=== PATIENT | female | born 1975 | race African-American/Black ===

== ENCOUNTER 2016-11-26 20:23 | Emergency (ER) | payer OTHER ==
[~2016-11-26] VITALS: Ht 165.1 cm; Wt 77.6 kg
--- NOTE | 2016-11-26 20:32 | NUR ---
PT TO ER BED 12. C/O SUICIDAL IDEATION W/ PLAN TO OD ON ASPIRIN AND TYLENOL. NO MEDICAL COMPLAINS AT THIS TIME. STATES BEEN HAVING SI FOR DAYS NOW BUT GOT WORST SINCE THIS AM. PT IS AAO, SI PRECAUTION IMPLEMENTED. AWAITINGMD EVAL.
[2016-11-26 20:45] LABS: BASOPHILS % (AUTO) 0.3 % (0.0-2.0); EOSINOPHILS # (AUTO) 0.3 /CMM (0.0-0.7); EOSINOPHILS % (AUTO) 1.7 % (0.0-6.0); HEMATOCRIT 34 % (33-45); HEMOGLOBIN 10.5 g/dL (11.5-14.8); LYMPHOCYTES # (AUTO) 1.9 /CMM (0.8-4.8); MEAN CORPUSCULAR HEMOGLOBIN 22 PG (26.0-33.0); MEAN CORPUSCULAR HGB CONC 31 g/dl (31.0-36.0); MEAN CORPUSCULAR VOLUME 72 fL (82-100); MONOCYTES # (AUTO) 1.3 /CMM (0.1-1.30); MONOCYTES % (AUTO) 7.8 % (2.0-12.0); NEUTROPHILS # (AUTO) 12.5 /CMM (1.8-8.9); NEUTROPHILS % (AUTO) 78.2 % (43.0-81.0); PLATELET COUNT (AUTO) 371 /CMM (150-450); RDW COEFFICIENT OF VARIATION 15.7 (11.5-15.0); RED BLOOD CELL COUNT(AUTO) 4.77 MIL/uL (4.0-5.2)
[2016-11-26 20:53] LABS: APPEARANCE,URINE Clear (CLEAR); BILIRUBIN,URINE Negative (NEGATIVE); BLOOD, URINE Trace-intact Ery/uL (NEGATIVE); COLOR,URINE Yellow (YELLOW); KETONES,URINE Negative (NEGATIVE); LEUKOCYTE ESTERASE ,URINE Negative (NEGATIVE); NITRITE, URINE Negative (NEGATIVE); PROTEIN,URINE Negative (NEGATIVE); UGLUCOSE Negative (NEGATIVE); UROBILINOGEN,URINE 0.2 EU/dL (0.2)
[2016-11-26 20:54] LABS: CALCIUM, SERUM 8.8 mg/dL (8.5-10.1); CARBON DIOXIDE 30 mmol/L (21-32); CHLORIDE 106 mmol/L (98-107); CREATININE 0.9 mg/dL (0.6-1.3); GLUCOSE 88 mg/dL (74-106); POTASSIUM 3.6 mmol/L (3.5-5.1); SODIUM SERUM 140 mmol/L (136-145); UREA NITROGEN, BLOOD 16 mg/dL (7-18)
[2016-11-26 20:55] LABS: PREGNANCY TEST URINE QUAL NEGATIVE (NEGATIVE)
[2016-11-26] MEDS ORDERED: LORAZEPAM 1 MG TABLET PO ONE (21:00)
[2016-11-26 21:04] LABS: BACTERIA,URINE None seen /HPF (None Seen); SQUAMOUS EPITHELIAL CELL,UR Few /HPF (None Seen); WBC,URINE 0-2 /HPF (0-3)
[2016-11-26 21:07] LABS: ALANINE AMINOTRANSFERASE 33 U/L (12-78); ALBUMIN 3.5 g/dL (3.4-5.0); ALCOHOL, BLOOD < 3 mg/dL (0-0); ALKALINE PHOSPHATASE 86 U/L (46-116); ASPARTATE AMINOTRANSFERASE 14 U/L (15-37); BILIRUBIN,DIRECT 0.1 mg/dL (0.0-0.2); BILIRUBIN,TOTAL 0.2 mg/dL (0.2-1.0)
[2016-11-26 21:08] LABS: ACETAMINOPHEN < 2 ug/ml (10-30); SALICYLATE < 2.8 mg/dL (2.8-20.0)
--- NOTE | 2016-11-26 22:00 | NUR ---
CALLED CLINICIAN FOR EVAL OF PT. ETA 1 HOUR
--- NOTE | 2016-11-26 22:45 | NUR ---
JOSE RAUL RN AT BEDSIDE FOR PSYCH EVAL.
--- NOTE | 2016-11-26 23:01 | NUR ---
REPORT TO CHARGE FUENTES FOR [facility].
--- NOTE | 2016-11-26 23:54 | NUR ---
PT WALKED TO NURSES' STATION AND STATED "I WANNA GO NOW AND WILL FIND MY WAY OUT". AWARE AND PRINTING OUT ACI.
[2016-11-26 23:55] VITALS: BP 122/82
== END 2016-11-26 23:56 | disposition home or self-care (01) ==
LOC: ER 20:25
DX: F32.9 Major depressive disorder, single episode, unspecified (principal)
CPT/HCPCS: 36415; 80048-TC; 80076-TC; 80305; 81000-TC; 84703-TC; 85025-TC; A4606; G0480; Z7610

== ENCOUNTER 2017-02-28 19:30 | Inpatient (IN) | payer OTHER ==
[~2017-02-28] VITALS: Ht 160 cm; Wt 89.8 kg
--- NOTE | 2017-02-28 20:19 | NUR ---
SHERIN FROM [facility] C/O ABD PAIN X 1 DAY S/P HAVING A BABY. PT AOX3 RR EVEN AND UNLABORED. NO SOB NOTED. NAD NOTED. NO NVD AT THIS TIME. PT GOWNED AND PLACED ON MONITOR. PAC NUSHA AT BEDSIDE FOR EVAL. PT STATES +SI - HI. PT STATES PLAN TO DRINK BLEACH. PAC NUSHA AWARE.
--- NOTE | 2017-02-28 20:20 | NUR ---
URINE COLLECTED. SENT TO LAB
[2017-02-28 20:24] LABS: EOSINOPHILS # (AUTO) 0.1 /CMM (0.0-0.7); EOSINOPHILS % (AUTO) 0.4 % (0.0-6.0)
[2017-02-28] MEDS ORDERED: IV NS 0.9% 1,000 ML BAG IV ONE (20:30)
[2017-02-28 20:31] LABS: BASOPHILS # (AUTO) 0.1 /CMM (0.0-0.2); BASOPHILS % (AUTO) 0.5 % (0.0-2.0); HEMATOCRIT 33 % (33-45); HEMOGLOBIN 10.5 g/dL (11.5-14.8); LYMPHOCYTES # (AUTO) 1.9 /CMM (0.8-4.8); MEAN CORPUSCULAR HEMOGLOBIN 22 PG (26.0-33.0); MEAN CORPUSCULAR HGB CONC 32 g/dl (31.0-36.0); MEAN CORPUSCULAR VOLUME 69 fL (82-100); MONOCYTES # (AUTO) 1.6 /CMM (0.1-1.30); MONOCYTES % (AUTO) 8.3 % (2.0-12.0); NEUTROPHILS # (AUTO) 15.2 /CMM (1.8-8.9); NEUTROPHILS % (AUTO) 80.8 % (43.0-81.0); PLATELET COUNT (AUTO) 358 /CMM (150-450); RDW COEFFICIENT OF VARIATION 15.7 (11.5-15.0); RED BLOOD CELL COUNT(AUTO) 4.85 MIL/uL (4.0-5.2); WHITE BLOOD COUNT (AUTO) 18.9 K/uL (4.3-11.0)
[2017-02-28 20:33] LABS: CALCIUM, SERUM 8.8 mg/dL (8.5-10.1); CARBON DIOXIDE 27 mmol/L (21-32); CHLORIDE 103 mmol/L (98-107); CREATININE 0.8 mg/dL (0.6-1.3); GLUCOSE 105 mg/dL (74-106); POTASSIUM 3.7 mmol/L (3.5-5.1); SODIUM SERUM 139 mmol/L (136-145); UREA NITROGEN, BLOOD 10 mg/dL (7-18)
[2017-02-28 20:45] LABS: ALANINE AMINOTRANSFERASE 28 U/L (12-78); ALBUMIN 3.3 g/dL (3.4-5.0); ALCOHOL, BLOOD < 3 mg/dL (0-0); ALKALINE PHOSPHATASE 98 U/L (46-116); ASPARTATE AMINOTRANSFERASE 14 U/L (15-37); BILIRUBIN,TOTAL 0.1 mg/dL (0.2-1.0); TOTAL PROTEIN, SERUM 7.7 g/dL (6.4-8.2)
[2017-02-28 20:46] LABS: ACETAMINOPHEN < 2 ug/ml (10-30)
--- NOTE | 2017-02-28 20:46 | NUR ---
PT TO CT.
[2017-02-28 20:47] LABS: SALICYLATE 32.6 mg/dL (2.8-20.0)
--- NOTE | 2017-02-28 20:51 | NUR ---
PER [facility] CT ABD CANCELED.
--- NOTE | 2017-02-28 20:53 | NUR ---
PT RETURNED FROM CT.
[2017-02-28 22:16] LABS: APPEARANCE,URINE CLEAR (CLEAR); BILIRUBIN,URINE NEGATIVE (NEGATIVE); BLOOD, URINE NEGATIVE Ery/uL (NEGATIVE); COLOR,URINE YELLOW (YELLOW); KETONES,URINE NEGATIVE (NEGATIVE); LEUKOCYTE ESTERASE ,URINE NEGATIVE (NEGATIVE); NITRITE, URINE NEGATIVE (NEGATIVE); PH,URINE 6.5 (5.0-8.0); PROTEIN,URINE NEGATIVE (NEGATIVE); UGLUCOSE NEGATIVE (NEGATIVE); UROBILINOGEN,URINE 0.2 EU/dL (0.2)
[2017-02-28] MEDS ORDERED: VANCOMYCIN 1 GM in IV D5W 250 ML IV STA (22:26)
[2017-02-28] MEDS ORDERED: IV NS 0.9% 250 ML IV ONE (22:36)
[2017-02-28] MEDS ORDERED: CT SWABBABLE VALVE TRANS SET 1 EA INFUS.SET MC ONE (22:36)
[2017-02-28] MEDS ORDERED: IOHEXOL-300 100 ML VIAL IV ONE (22:36)
--- NOTE | 2017-02-28 22:41 | NUR ---
PT TO CT.
[2017-02-28] MEDS ORDERED: VANCOMYCIN 1 GM VIAL ONE (22:49)
--- NOTE | 2017-02-28 22:56 | NUR ---
PT RETURNED FROM CT.
--- NOTE | 2017-02-28 23:06 | NUR ---
ANNABELLA HART SPEAKING TO METAL WINDOW SCREEN ASSEMBLER ANDOIAN REGARDING ADMISSION.
--- NOTE | 2017-02-28 23:09 | NUR ---
PT ASSIGNED MS 304-1
[2017-02-28] MEDS ORDERED: IV NS 0.9% 1,000 ML IV ONE (23:30)
[2017-02-28] MEDS ORDERED: ONDANSETRON HCL/PF 4 MG/2 ML VIAL IVP PRN (23:30)
[2017-02-28] MEDS ORDERED: Z GUARD REMEDY 2 OZ OINT TP PRN (23:30)
--- NOTE | 2017-02-28 23:32 | NUR ---
REPORT GIVEN GRANT FOR MS 304-1
--- NOTE | 2017-03-01 00:15 | NUR ---
ms/rn notes NEWLY ADMITED PATIENT IS A 41 YO ,OBESE, ALERT, ORIENTED X3. ABLE TO VERBALIZE NEEDS , ANXIOUS ABOUT HEALTH CONCERN AND INFORM REGARDING MD ORDER, PATIENT ABLE TO COOPERATE AFTER. DX W/ ABDOMINAL PAIN AND SUICIDAL IDEATION PATIENT MARIELA TO DRINK CLOROX, REPORTED HAD GIVEN A WEEK AGO , BUT HAD HX OF HYSTERECTOMY. NO PAIN OBSERVED AND VERBALIZED, BELONGINGS CHECK, IV SITE ON LEFT AC AND LEFT HAND W/ NO S/S OF INFILTRATION. INFORM REGARDING NPO STATUS. MD ORDERS/RECONCILED. SKIN INTACT. WILL CONTINUE TO PROVIDE CARE.
--- NOTE | 2017-03-01 00:18 | NUR ---
PT TRANSFERRED TO [place] BED 304-1
[2017-03-01 00:20] VITALS: BP 130/83
[2017-03-01 01:16] VITALS: BP 130/83
--- NOTE | 2017-03-01 06:30 | NUR ---
304-1 MS/RN NOTES PATIENT ABLE TO SLEEP DURING THE NIGHT, RESPIRATION EVEN AND UNLABORED, NO PAIN OBSERVED AND VERBALIZED, WITH SITTER DUE TO SI, NO PLAN AT THIS TIME. REPORTED TOOK 40 ASPIRIN PRIOR TO ADMISSION. NPO AND MONITORING FOR ANY S/S OF CHANGES. CALL LIGHTS WITHIN REACH.
[2017-03-01 06:46] LABS: BASOPHILS % (AUTO) 0.2 % (0.0-2.0); EOSINOPHILS # (AUTO) 0.2 /CMM (0.0-0.7); EOSINOPHILS % (AUTO) 1.3 % (0.0-6.0); HEMATOCRIT 30 % (33-45); HEMOGLOBIN 9.3 g/dL (11.5-14.8); LYMPHOCYTES # (AUTO) 2.1 /CMM (0.8-4.8); LYMPHOCYTES % (AUTO) 15.1 % (20.0-44.0); MEAN CORPUSCULAR HEMOGLOBIN 22 PG (26.0-33.0); MEAN CORPUSCULAR HGB CONC 31 g/dl (31.0-36.0); MEAN CORPUSCULAR VOLUME 71 fL (82-100); MONOCYTES # (AUTO) 1.2 /CMM (0.1-1.30); MONOCYTES % (AUTO) 8.9 % (2.0-12.0); NEUTROPHILS # (AUTO) 10.2 /CMM (1.8-8.9); NEUTROPHILS % (AUTO) 74.5 % (43.0-81.0); PLATELET COUNT (AUTO) 279 /CMM (150-450); RDW COEFFICIENT OF VARIATION 17.2 (11.5-15.0); RED BLOOD CELL COUNT(AUTO) 4.24 MIL/uL (4.0-5.2); WHITE BLOOD COUNT (AUTO) 13.7 K/uL (4.3-11.0)
[2017-03-01 07:07] LABS: CALCIUM, SERUM 8.5 mg/dL (8.5-10.1); CREATININE 0.6 mg/dL (0.6-1.3); PHOSPHORUS 4.1 mg/dL (2.5-4.9); POTASSIUM 3.8 mmol/L (3.5-5.1)
--- NOTE | 2017-03-01 07:30 | NUR ---
RN OPENING NOTES 1:1 SITTER AT BEDSIDE. NPO SINCE LAST NIGHT. RECEIVED PT. IN BED A&OX4. PT. VERBALIZES SUICIDAL IDEATION, AND WANTS TO HURST HERSELF, PT. STATES HER PLAN IS TO DRINK BLEACH. BREATHING UNLABORED, AND EVENLY ON ROOM AIR. NO S/S OF ACUTE DISTRESS. PT. DENIES PAIN. IV FLUIDS RUNNING AT 100 ML/HR. BED IS IN LOWEST, LOCKED POSITION, 2 SIDE RAILS UP, AND INSTRUCTED PT. TO USE CALL LIGHT FOR ASSISTANCE. WILL CONTINUE TO ASSESS AND MONITOR.
[2017-03-01 08:00] VITALS: BP 133/76
[2017-03-01] MEDS ORDERED: IV NS 0.9% 1,000 ML IV PRN (10:00)
--- NOTE | 2017-03-01 10:39 | NUR ---
RN NOTES PT. PULLED HER IV OUT ON THE LEFT ANTECUBITAL SITE, BLEEDING WAS STOPPED, AND PT. SAID THAT IF SHE DOES NOT SEE A DOCTOR OR INSURANCE VERIFICATION REPRESENTATIVE IMMEDIATELY SHE WILL LEAVE. PT. TOOK HER PURSE AND PROCEEDED TO WALK OUT OF THE ROOM. PT. CAME UP TO THE NURSES STATION, AND SAID THAT SHE IS LEAVING. PT. WAS EXPLAINED THAT A INSURANCE VERIFICATION REPRESENTATIVE AND DOCTOR IS GOING TO SEE HER RIGHT AWAY, AND PT. WAS CALMED DOWN. BETSY BROUGHT PT. BACK TO HER ROOM.
--- NOTE | 2017-03-01 10:41 | NUR ---
POISON CONTROL CALLED TALKED OT JOE ARMIJO DOCTOR OF PHARMACY.
--- NOTE | 2017-03-01 10:50 | NUR ---
RN NOTES PT. CAN BE ON REGULAR DIET PER COUNTY NURSE. PT. REQUESTED TUNA FISH SANDWICH AND ORANGE JUICE.
--- NOTE | 2017-03-01 11:39 | NUR ---
RN NOTES PT. WAS SEEN AND EXAMINED BY EXECUTIVE ASSISTANT. PT. AGREED TO HAVE A NEW IV INSERTED.
--- NOTE | 2017-03-01 14:06 | NUR ---
POISON CONTROL CALLED TO F/U ON PT.'S CONDITION, AND NEW SALICYLATE LEVELS. REPORTED THAT PT. IS ALERT AND ORIENTED, AND DOING WELL. SALICYLATE LEVEL IS 15.5 AT 0530 THIS MORNING.
--- NOTE | 2017-03-01 14:06 | NUR ---
Social service consult for homelessness and suicidal ideations. Pt. is a 41 year old female who was admitted to [facility] for [facility]. SW met with pt. bedside. Pt. is alert and oriented x 3. Pt. was resting when SW went to assess pt. Pt. appears disheveled. Pt. was cooperative and pleasant with SW during the assessment. Pt's judgement insight and impulse control are within normal limits. Pt. states she has been homeless for about a year. Prior to being homeless, pt. was residing in [facility] in [place]. Pt. has a history of complaining of post depression but wouldn't elaborate if she has a child or not. Pt. has history of Bipolar disorder and Schizophrenia. Pt. states she is suicidal with a plan to drink bleach. Pt. has a sitter bedside for safety. Pt. denies visual/auditory hallucinations at this time. Pt. denies history of drug and alcohol use and and abuse. Pt. has a history of psychiatric hospitalizations. Her last hospitalization was a week ago at [facility]. Prior to [facility], pt. had voluntary psych. hospitalization at [facility] in [place]. Pt. was seen by crisis team clinician Wilbur Nicole. Pt. does not meet 5150 criteria, however pt. is willing to go voluntary to [facility] once medically cleared. SW to follow up and initiate psychiatric hospitalization to [facility] once pt. is medically cleared. Addendum: 03/01/17 at 1422 by ZEKE CUEVAS Pt. receives approximately $889/ month in social security income.
[2017-03-01 16:00] VITALS: BP 129/81
--- NOTE | 2017-03-01 18:47 | NUR ---
RN CLOSING NOTES 1:1 SITTER AT BEDSIDE. PT. IN BED A&OX4. PT IS ON REGULAR DIET. BREATHING UNLABORED, AND EVENLY ON ROOM AIR. NO S/S OF ACUTE DISTRESS. PT. DENIES PAIN. IV FLUIDS RUNNING AT 100 ML/HR. BED IS IN LOWEST, LOCKED POSITION, 2 SIDE RAILS UP, AND INSTRUCTED PT. TO USE CALL LIGHT FOR ASSISTANCE. WILL ENDORSE REPORT TO NURSE.
[2017-03-01 20:00] VITALS: BP 130/73
--- NOTE | 2017-03-01 20:17 | NUR ---
DIANETICIST /INITIAL NOTES PT RECEIVED IN BED AWAKE AND ALERT LYING IN BED WATCHING TV AT THIS TIME. NOT IN ANY ACUTE DISTRESS NOTED. CALMED AT THIS TIME AND NO SIGNS OF SUICIDAL IDEATION NOTED AT THIS TIME. KEPT HER WARM AND COMFORTABLE AT ALL TIMES. SITTER AT THE BEDSIDE FOR SAFETY. WILL CONTINUE TO MONITOR. PLACE CALL LIGHT AT REACH.
[2017-03-01] MEDS: risperiDONE 1 MG TABLET PO SCH (21:55)
--- NOTE | 2017-03-02 | NUR ---
MS NAZARIO NOTES SEEN PT SLEEPING AT THIS TIME AFTER ROUTINE MEDS GIVEN AND SNACKS. RESPIRATION EVEN AND NON-LABORED. KEPT HER WARM AND COMFORTABLE AT ALL TIMES. SITTER AT THE BEDSIDE FOR SAFETY.
--- NOTE | 2017-03-02 07:36 | NUR ---
MS COASTAL TUG MATE CLOSING NOTES PT JUST WOKE UP AND BANQUET BARTENDER ASSISTED TO USED THE RESTROOM. SLEPT WELL , NO SIGNS OF ANY SUICIDAL IDEATION NOTED. HEPLOCK AT THIS TIME. STABLE ANA THE NIGHT. KEPT HER WARM AND COMFORTABLE AT ALL TIMES. ENDORSE TO AM NURSE FOR CONTINUITY OF CARE. PLACE CALL LIGHT AT REACH.
--- NOTE | 2017-03-02 07:49 | NUR ---
MS/RN OPENING NOTE PATIENT RECEIVED IN BED IN STABLE CONDITION. A/O X 3. NO SIGNS OF ACUTE DISTRESS. NO COMPLAIN OF PAIN OR DISCOMFORT. 1:1 SITTER AT BEDSIDE. UPON ASKING WHAT PATIENT WANTS HER GOAL TO BE FOR TODAY, PATIENT VERBALIZED, " I STILL HAVE SUICIDAL IDEATIONS, THAT'S WHY I WANT TO GO TO [place]." ALL NEEDS ATTENDED AT THIS TIME. CALL LIGHT WITHIN REACH. WILL CONTINUE TO MONITOR TO ENSURE SAFETY.
[2017-03-02 08:00] VITALS: BP 120/80
[2017-03-02] MEDS: ESCITALOPRAM OXALATE (10 MG) 10 MG TABLET PO SCH (08:29)
[2017-03-02 11:16] LABS: BASOPHILS % (AUTO) 0.3 % (0.0-2.0); EOSINOPHILS # (AUTO) 0.3 /CMM (0.0-0.7); EOSINOPHILS % (AUTO) 2.4 % (0.0-6.0); HEMATOCRIT 32 % (33-45); HEMOGLOBIN 9.8 g/dL (11.5-14.8); LYMPHOCYTES # (AUTO) 1.7 /CMM (0.8-4.8); MEAN CORPUSCULAR HEMOGLOBIN 22 PG (26.0-33.0); MEAN CORPUSCULAR HGB CONC 31 g/dl (31.0-36.0); MEAN CORPUSCULAR VOLUME 70 fL (82-100); MONOCYTES % (AUTO) 7.7 % (2.0-12.0); NEUTROPHILS # (AUTO) 9.8 /CMM (1.8-8.9); NEUTROPHILS % (AUTO) 76.6 % (43.0-81.0); PLATELET COUNT (AUTO) 302 /CMM (150-450); RDW COEFFICIENT OF VARIATION 17.4 (11.5-15.0); RED BLOOD CELL COUNT(AUTO) 4.55 MIL/uL (4.0-5.2); WHITE BLOOD COUNT (AUTO) 12.8 K/uL (4.3-11.0)
[2017-03-02] MEDS ORDERED: FLU VACC QS 2017-18(36MOS+)/PF 0.5 ML DISP.SYRIN IM ONE (11:29)
[2017-03-02 11:33] LABS: CALCIUM, SERUM 8.7 mg/dL (8.5-10.1); CREATININE 0.6 mg/dL (0.6-1.3); MAGNESIUM 1.9 mg/dL (1.8-2.4); PHOSPHORUS 2.6 mg/dL (2.5-4.9); POTASSIUM 3.9 mmol/L (3.5-5.1)
[2017-03-02 11:35] LABS: SALICYLATE 1.1 mg/dL (2.8-20.0)
[2017-03-02 12:49] LABS: EOSINOPHILS % (MANUAL) 3 % (0-4); LYMPHOCYTES % (MANUAL) 9 % (16-48); MONOCYTES % (MANUAL) 7 % (0-11.0); NEUTROPHILS % (MANUAL) 81 (42-76)
[2017-03-02 16:00] VITALS: BP 129/78
--- NOTE | 2017-03-02 17:48 | NUR ---
MS/RN SPOKE WITH DANY SPOKE WITH DANY DONOVAN IF ITS OKAY TO DC IV FLUIDS SECONDARY TO ELECTROLYTES IN RANGE. PER DANY DRY DRUG WORKER TO DC IV FLUIDS.
--- NOTE | 2017-03-02 18:22 | NUR ---
MS/RN CLOSING NOTE PATIENT IN BED IN STABLE CONDITION. A/O X 3. NO SIGNS OF ACUTE DISTRESS. NO COMPLAIN OF PAIN OR DISCOMFORT. NO VERBALIZATION OF SUICIDAL IDEATIONS AT THIS TIME. 1:1 SITTER AT BEDSIDE. ALL NEEDS ATTENDED TO. CALL LIGHT WITHIN REACH. WILL ENDORSE TO NEXT SHIFT FOR CONTINUITY OF CARE.
[2017-03-02 20:00] VITALS: BP 117/56
--- NOTE | 2017-03-02 21:00 | NUR ---
A/a/o times 4, can't make up her mind about getting rid of hep lock, finally made up her mind about getting rid of it. dcd per her request. no acute distress noted or voiced. Martha continues for pt safety
[2017-03-02] MEDS: risperiDONE 1 MG TABLET PO SCH (21:21)
--- NOTE | 2017-03-03 05:56 | NUR ---
Slept most of the night,no distress noted or voiced.
[2017-03-03 08:00] VITALS: BP 121/73
--- NOTE | 2017-03-03 08:19 | NUR ---
MS RN NOTES PT SLEEPING IN BED. 1:1 SITTER AT BEDSIDE. NO APPARENT S/S OF PAIN OR DISTRESS. WILL CONTINUE TO MONITOR.
[2017-03-03] MEDS: ESCITALOPRAM OXALATE (10 MG) 10 MG TABLET PO SCH (08:36)
--- NOTE | 2017-03-03 14:00 | NUR ---
RN MS NOTES PT AMBULATED 1 LAP AROUND THE UNIT W/ 1:1 SITTER. TOLERATED WELL. WILL CONTINUE TO MONITOR.
[2017-03-03 15:00] VITALS: BP 121/68
[2017-03-03] MEDS: ACETAMINOPHEN 325 MG TABLET PO PRN (15:40)
[2017-03-03] MEDS ORDERED: ESCI10TA PO (16:18)
[2017-03-03] MEDS ORDERED: ACET325T53 PO (16:18)
[2017-03-03] MEDS ORDERED: RISP1TAB7 PO (16:18)
--- NOTE | 2017-03-03 18:05 | NUR ---
RN CLOSING NOTES PT RESTING IN BED. NO COMPLAINTS OF PAIN OR DISTRESS. 1:1 SITTER AT BEDSIDE. PT CALM AND COMFORTABLE. PT AMBULATES WELL. CURRENTLY AWAITING PLACEMENT, PT MADE AWARE. CALL LIGHT WITHIN REACH.
--- NOTE | 2017-03-03 19:30 | NUR ---
MS/RN RECEIVE PATIENT AWAKE, ALERT, ORIENTED, COMFORTABLE, NO C/O PAIN, NO DISTRESS NOTED, CALL LIGHT IN REACH. WILL MONITOR.
[2017-03-03 20:52] VITALS: BP 138/79
[2017-03-03] MEDS: risperiDONE 1 MG TABLET PO SCH (22:00)
--- NOTE | 2017-03-04 05:09 | NUR ---
MS/RN PATIENT WAS TRANSFERRED TO [facility] TO JOIN THE NEW PATIENT THAT NEEDS A SITTER.
--- NOTE | 2017-03-04 06:31 | NUR ---
MS/RN PATIENT IS SLEEPING, AROUSABLE, APPEAR COMFORTABLE, NO DISTRESS NOTED, ALL NEEDS ATTENDED AT THIS TIME. WILL CONTINUE TO MONITOR.
--- NOTE | 2017-03-04 07:30 | NUR ---
RN MS NOTES PT IN BED, AWAKE, ALERT AND ORIENTED, NO COMPLAINT OF PAIN OR ANY DISCOMFORT, RESPIRATIONS NORMAL, CALL LIGHT WITHIN REACH, SITTER AT BEDSIDE, PLAN OF CARE DISCUSSED WITH PT, VERBALIZED UNDERSTANDING, SAFETY PRECAUTIONS OBSERVED.
[2017-03-04 08:00] VITALS: BP 112/62
[2017-03-04] MEDS: ESCITALOPRAM OXALATE (10 MG) 10 MG TABLET PO SCH (09:30)
--- NOTE | 2017-03-04 13:30 | NUR ---
RN MS NOTES PT IN BED, NOT IN PAIN OR DISTRESS, STILL AWAITING PLACEMENT, PER ALEXANDRO MCGARRY NO BED AVAILABLE YET, PT INFORMED, VERBALIZED UNDERSTANDING.
--- NOTE | 2017-03-04 17:05 | NUR ---
RN MS NOTES CARE OF PT ENDORSED TO FRANCES WASSERMAN.
--- NOTE | 2017-03-04 17:10 | NUR ---
MS RN NOTE RECEIVED REPORT FROM NABILA. PATIENT IS IN BED, COMFORTABLE AT THIS TIME. WILL CONTINUE TO MONITOR
--- NOTE | 2017-03-04 18:50 | NUR ---
MS RN CLOSING NOTE PATIENT IS ALERT AND ORIENTED X4. NO PAIN AT THIS TIME. NO SOB OR DISTRESS NOTED. CALL LIGHT WITHIN REACH AT ALL TIMES. SAFETY MEASURES IMPLEMENTED. ABLE TO COMMUNICATE NEEDS. SITTER AT BEDSIDE FOR SAFETY. AMBULATORY, SKIN INTACT. NO IV ACCESS. AWAITING PLACEMENT. WILL ENDORSE TO CREATIVE SERVICES WRITER NURSE FOR [facility]
[2017-03-04 19:00] VITALS: BP 121/71
--- NOTE | 2017-03-04 19:30 | NUR ---
MS RN OPENING NOTES RECEIVED PATIENT RESTING IN BED, A & O X 4. NO SOB, NO ACUTE DISTRESS. HAS C/O UPPER BODY ACHE & REQUESTING FOR TYLENOL. WILL ADMINISTER TYLENOL. SITTER AT BEDSIDE FOR SAFETY. NO IV ACCESS. ASSURED THAT SHE IS TAKING GOOD PO FLUIDS FOR HYDRATION. BED IN LOW LOCKED POSITION. CALL LIGHT WITHIN PLACE. SAFETY MEASURES IN PLACE. WILL CONTINUE TO MONITOR.
[2017-03-04] MEDS: ACETAMINOPHEN 325 MG TABLET PO PRN (19:46)
--- NOTE | 2017-03-04 19:49 | NUR ---
PRN TYLENOL GIVEN PATIENT VERBALIZED UPPER BODY ACHE. REQUESTED FOR TYLENOL. PRN TYLENOL GIVEN ORDERED. WILL REASSESS FOR EFFECTIVENESS OF PAIN MEDICINE.
[2017-03-04 20:00] VITALS: BP 133/72
[2017-03-04] MEDS: risperiDONE 1 MG TABLET PO SCH (22:07)
--- NOTE | 2017-03-04 22:57 | NUR ---
TYLENOL EFFECTIVE PATIENT NOTED TO SLEEPING IN BED AT THIS TIME. NO MORE C/O PAIN NOTED. 1 : 1 SITTER NEXT TO THE BED FOR SAFETY.
[2017-03-04 23:16] VITALS: BP 112/62
--- NOTE | 2017-03-05 06:51 | NUR ---
MS RN CLOSING NOTES PATIENT SLEPT WELL AT NIGHT. NO SOB, NO C/O PAIN AFTER TYLENOL WAS GIVEN NOTED. ASSISTED WITH ADL CARE NEEDED. NO IV ACCESS. 1 : 1 SITTER AT BED SIDE. NO VERBALIZATION OF SUICIDAL IDEATIONS NOTED AT NIGHT. GOOD PO INTAKE CONSUMED. SAFETY MEASURES IN PLACE. BED IN LOW LOCKED POSITION. CALL LIGHT WITHIN REACH. WILL ENDORSE TO AM RN FOR CONTINUITY OF CARE.
[2017-03-05 07:07] VITALS: BP 112/62
--- NOTE | 2017-03-05 07:21 | NUR ---
RN OPENING NOTES PATIENT IN BED, AWAKE, A/OX4, NO COMPLAINT OF PAIN OR ANY DISCOMFORT. NO ACUTE DISTRESS, NO SOB NOTED. NO IV ACCESS. SITTER AT BEDSIDE FOR SAFETY, NO SUICIDAL IDEATION NOTED. KEPT PATIENT SAFE AND COMFORTABLE. BED IN LOW POSITION, LOCKED, SIDERAILS UPX2, CALL LIGHT IN REACH. WILL CONTINUE TO MONITOR ACCORDINGLY.
[2017-03-05 08:00] VITALS: BP 146/95
--- NOTE | 2017-03-05 08:33 | NUR ---
FAITH faxed clinicals to intake at [facility] for admission.
[2017-03-05] MEDS: ESCITALOPRAM OXALATE (10 MG) 10 MG TABLET PO SCH (09:45)
--- NOTE | 2017-03-05 11:15 | NUR ---
M/S RN: NOTES ZEKE (FAITH) AT BEDSIDE AND INFORMED HER THAT SHE GOING TODAY TO [facility] IN [place]. PT VERBALIZED UNDERSTANDING. MANUFACTURING INSPECTOR MAKING ARRANGEMENT.
--- NOTE | 2017-03-05 14:51 | NUR ---
FAITH received a call from Magy in Intake at [facility] requesting for pt. to have an HCG test prior to them accepting pt. FAITH tried to explain to Magy that pt. has had a hysterectomy, however Magy insisted on having a HCG test for pt. FAITH informed supervisor color paste mixing Diane in regards to pt. needing an HCG test per Pinky Taylor.
--- NOTE | 2017-03-05 15:45 | NUR ---
FAITH received a call from FRANCES Lopez informing FAITH that Urine test results are back and pt. has a negative test result. FAITH faxed results to Magy at . FAITH called Magy and informed her that the results were faxed. Magy informed FAITH that accepting doctor for the pt. is Dr. Amin and nurse to nurse report needs to be called in at [phone] x [phone]. FAITH called tank charger Diane and gave her the contact information for nurse to nurse report. FAITH also met with nursing comfort station supervisor Lidya for a taxi voucher for pt. to be transported to [facility]. facility ([facility]) located at [address] [place] [address], in [facility]
[2017-03-05 16:28] VITALS: BP 142/89
--- NOTE | 2017-03-05 16:30 | NUR ---
RN NOTES DISCHARGE PATIENT IN STABLE CONDITION ACCOMPANIED BY NAZARIO NEELY, LEFT VIA TAXI. DISCHARGE TEACHING/INSTRUCTIONS GIVEN, PATIENT VERBALIZED UNDERSTANDING, DISCHARGE PAPERWORK GIVEN. GAVE REPORT TO FRANCES OLIVIER AT [place] [place].
== END 2017-03-05 16:30 | DRG 812 ==
LOC: ER 19:32 → MED 23:52
PROVIDERS: ADMIT Family Medicine; ATTEND Family Medicine
DX: T39.012A Poisoning by aspirin, intentional self-harm, initial encounter (principal); F33.3 Major depressive disorder, recurrent, severe with psychotic symptoms; E44.1 Mild protein-calorie malnutrition; D72.829 Elevated white blood cell count, unspecified; Y92.009 Unspecified place in unspecified non-institutional (private) residence as the place of occurrence of the external cause; E66.01 Morbid (severe) obesity due to excess calories; E88.09 Other disorders of plasma-protein metabolism, not elsewhere classified; Z68.35 Body mass index [BMI] 35.0-35.9, adult; R93.5 Abnormal findings on diagnostic imaging of other abdominal regions, including retroperitoneum; Z90.710 Acquired absence of both cervix and uterus; Z59.0 Homelessness
CPT/HCPCS: 36415; 71010-TC; 80048-TC; 80061-TC; 80076-TC; 80305; 81000-TC; 83735-TC; 84100-TC; 84703-TC; 85025-TC; 87081-TC; G0480; J3370; J7030; J7050; Q2036; Q9967

== ENCOUNTER 2017-07-09 17:31 | Emergency (ER) | payer OTHER ==
[~2017-07-09] VITALS: Ht 165.1 cm; Wt 78.0 kg
[~2017-07-09 17:31] MED LIST: ACET325T53 PO; ESCI10TA PO; RISP1TAB7 PO
--- NOTE | 2017-07-09 17:35 | NUR ---
MORTEZA SPENCE AT BEDSIDE FOR EVAL.
--- NOTE | 2017-07-09 17:45 | NUR ---
PT BIBRA FROM THE STREETS TO ER BED 10. PT IS C/O HEARING VOICES AND IS SUICIDAL W/ PLAN OF OVERDOSING ON TYLENOL.
--- NOTE | 2017-07-09 17:53 | NUR ---
PRICING INTERN AT BEDSIDE FOR BLOOD DRAW.
[2017-07-09 17:57] LABS: BASOPHILS % (AUTO) 0.2 % (0.0-2.0); EOSINOPHILS # (AUTO) 0.3 /CMM (0.0-0.7); EOSINOPHILS % (AUTO) 1.8 % (0.0-6.0); HEMATOCRIT 32 % (33-45); HEMOGLOBIN 9.8 g/dL (11.5-14.8); LYMPHOCYTES # (AUTO) 1.8 /CMM (0.8-4.8); LYMPHOCYTES % (AUTO) 10.5 % (20.0-44.0); MEAN CORPUSCULAR HEMOGLOBIN 21 PG (26.0-33.0); MEAN CORPUSCULAR HGB CONC 31 g/dl (31.0-36.0); MEAN CORPUSCULAR VOLUME 69 fL (82-100); MONOCYTES # (AUTO) 0.9 /CMM (0.1-1.30); MONOCYTES % (AUTO) 5.4 % (2.0-12.0); NEUTROPHILS # (AUTO) 13.9 /CMM (1.8-8.9); NEUTROPHILS % (AUTO) 82.1 % (43.0-81.0); PLATELET COUNT (AUTO) 359 /CMM (150-450); RDW COEFFICIENT OF VARIATION 17.5 (11.5-15.0); RED BLOOD CELL COUNT(AUTO) 4.61 MIL/uL (4.0-5.2); WHITE BLOOD COUNT (AUTO) 16.9 K/uL (4.3-11.0)
[2017-07-09 18:08] LABS: CARBON DIOXIDE 27 mmol/L (21-32); CHLORIDE 102 mmol/L (98-107); CREATININE 0.9 mg/dL (0.6-1.3); GLUCOSE 110 mg/dL (74-106); POTASSIUM 3.6 mmol/L (3.5-5.1); SODIUM SERUM 138 mmol/L (136-145); UREA NITROGEN, BLOOD 13 mg/dL (7-18)
[2017-07-09 18:15] LABS: ALANINE AMINOTRANSFERASE 36 U/L (12-78); ALBUMIN 3.2 g/dL (3.4-5.0); ALCOHOL, BLOOD < 3 mg/dL (0-0); ALKALINE PHOSPHATASE 112 U/L (46-116); ASPARTATE AMINOTRANSFERASE 22 U/L (15-37); BILIRUBIN,DIRECT 0.1 mg/dL (0.0-0.2); BILIRUBIN,TOTAL 0.3 mg/dL (0.2-1.0); TOTAL PROTEIN, SERUM 7.8 g/dL (6.4-8.2)
[2017-07-09 18:17] LABS: ACETAMINOPHEN 0 ug/ml (10-30); SALICYLATE 1.8 mg/dL (2.8-20.0)
[2017-07-09 19:34] LABS: LYMPHOCYTES % (MANUAL) 11 % (16-48); NEUTROPHILS % (MANUAL) 89 (42-76)
[2017-07-09 19:58] LABS: APPEARANCE,URINE Clear (CLEAR); BILIRUBIN,URINE Negative (NEGATIVE); BLOOD, URINE Negative Ery/uL (NEGATIVE); COLOR,URINE Yellow (YELLOW); KETONES,URINE Negative (NEGATIVE); LEUKOCYTE ESTERASE ,URINE Negative (NEGATIVE); NITRITE, URINE Negative (NEGATIVE); UGLUCOSE Negative (NEGATIVE); UROBILINOGEN,URINE 0.2 EU/dL (0.2)
[2017-07-09 19:59] LABS: PROTEIN,URINE NEGATIVE (NEGATIVE)
--- NOTE | 2017-07-09 20:26 | NUR ---
CALLED PINKY FOR PSYCH EVAL
--- NOTE | 2017-07-09 21:10 | NUR ---
DANTE RN AT BEDSIDE FOR PSYCH EVAL.
[2017-07-09 22:10] VITALS: BP 146/98
--- NOTE | 2017-07-09 22:27 | NUR ---
REPORT GIVEN TO JAMA AT [facility] VN. AWAITING TRNSPORT.
--- NOTE | 2017-07-09 22:57 | NUR ---
PT SENT TO [facility] VIA TAXI IN STABLE CONDITION.
== END 2017-07-09 22:59 ==
LOC: ER 17:34
DX: F32.9 Major depressive disorder, single episode, unspecified (principal); F20.9 Schizophrenia, unspecified; Z90.710 Acquired absence of both cervix and uterus
CPT/HCPCS: 36415; 71045; 80048; 80076; 80305; 80329; 81001; 84703; 85025; 87804 ×2; 99285; A4606; G0480 ×2; Z7610; 81000-TC; 87400

== ENCOUNTER 2017-07-13 22:19 | Emergency (ER) | payer OTHER ==
--- NOTE | 2017-07-13 22:20 | NUR ---
TO BED 14 BIB PARAMEDICS C/O DEPRESSION WITH SI. PT AAOX4 NO ACUTE DISTRESS NOTED, RESP EVEN AND UNLABORED. PT CALM AND COOPERATIVE AT THIS TIME. PT STATES "I WANT A SANDWICH". URINE SAMPLE COLLECTED AND SENT TO LAB. PENDING ER MD AU.
--- NOTE | 2017-07-13 22:44 | NUR ---
MCKINLEY OFFICERS AT BEDSIDE TALKING TO PT.
[2017-07-13] MEDS ORDERED: OLANZAPINE 5 MG TABLET PO ONE (23:00)
[2017-07-13] MEDS ORDERED: OLANZAPINE 5 MG TABLET ONE (23:00)
--- NOTE | 2017-07-13 23:02 | NUR ---
PT MEDICATED ORDERED.
[2017-07-13 23:08] LABS: BASOPHILS % (AUTO) 0.3 % (0.0-2.0); EOSINOPHILS # (AUTO) 0.2 /CMM (0.0-0.7); EOSINOPHILS % (AUTO) 1.2 % (0.0-6.0); HEMATOCRIT 30 % (33-45); HEMOGLOBIN 9.6 g/dL (11.5-14.8); LYMPHOCYTES # (AUTO) 2.6 /CMM (0.8-4.8); LYMPHOCYTES % (AUTO) 19.1 % (20.0-44.0); MEAN CORPUSCULAR HEMOGLOBIN 22 PG (26.0-33.0); MEAN CORPUSCULAR HGB CONC 32 g/dl (31.0-36.0); MEAN CORPUSCULAR VOLUME 70 fL (82-100); MONOCYTES # (AUTO) 0.8 /CMM (0.1-1.30); NEUTROPHILS # (AUTO) 10.2 /CMM (1.8-8.9); NEUTROPHILS % (AUTO) 73.4 % (43.0-81.0); PLATELET COUNT (AUTO) 345 /CMM (150-450); RDW COEFFICIENT OF VARIATION 19.3 (11.5-15.0); RED BLOOD CELL COUNT(AUTO) 4.36 MIL/uL (4.0-5.2); WHITE BLOOD COUNT (AUTO) 13.9 K/uL (4.3-11.0)
[2017-07-13 23:19] LABS: CALCIUM, SERUM 8.7 mg/dL (8.5-10.1); CARBON DIOXIDE 29 mmol/L (21-32); CHLORIDE 102 mmol/L (98-107); CREATININE 0.7 mg/dL (0.6-1.3); GLUCOSE 109 mg/dL (74-106); POTASSIUM 3.6 mmol/L (3.5-5.1); SODIUM SERUM 139 mmol/L (136-145); UREA NITROGEN, BLOOD 11 mg/dL (7-18)
[2017-07-13 23:24] LABS: ALANINE AMINOTRANSFERASE 35 U/L (12-78); ALBUMIN 3.1 g/dL (3.4-5.0); ALCOHOL, BLOOD < 3 mg/dL (0-0); ALKALINE PHOSPHATASE 102 U/L (46-116); ASPARTATE AMINOTRANSFERASE 15 U/L (15-37); BILIRUBIN,DIRECT 0.1 mg/dL (0.0-0.2); BILIRUBIN,TOTAL 0.2 mg/dL (0.2-1.0); TOTAL PROTEIN, SERUM 7.6 g/dL (6.4-8.2)
[2017-07-13 23:25] LABS: ACETAMINOPHEN 0 ug/ml (10-30); SALICYLATE 1.3 mg/dL (2.8-20.0)
--- NOTE | 2017-07-14 00:41 | NUR ---
STARTED SL 18G L HAND.
[2017-07-14] MEDS ORDERED: IV NS 0.9% 1,000 ML BAG IV ONE (01:00)
--- NOTE | 2017-07-14 02:12 | NUR ---
PT REMOVED HER IV. PRESSURE APPLIED. DD IN PLACE.
--- NOTE | 2017-07-14 02:17 | NUR ---
pt accepted to [facility] BY DR DREW. # FOR REPORT [phone] EXT [phone]
--- NOTE | 2017-07-14 02:28 | NUR ---
[facility] CALLED FOR TRANSPORT ETA 90 MIN
[2017-07-14 04:15] VITALS: BP 128/79
--- NOTE | 2017-07-14 04:16 | NUR ---
Patient discharged by ambulance to [facility] for voluntary psychiatric admission in stable condition. Written and verbal after care instructions given. Patient verbalizes understanding of instruction. VSS, NAD noted on DC. Denies complaint on DC.
[2017-07-15] MEDS ORDERED: ANESTHESIA TRAY IN PYXIS 1 EA TRAY MC ONE (09:59)
== END 2017-07-14 04:18 ==
LOC: ER 22:20
DX: F32.9 Major depressive disorder, single episode, unspecified (principal); F20.9 Schizophrenia, unspecified; Z90.710 Acquired absence of both cervix and uterus
CPT/HCPCS: 36415; 80048; 80076; 80305; 80329; 84703; 85025; 99285; A4606; G0480 ×2; J7030; Z7610

== ENCOUNTER 2017-07-21 21:53 | Emergency (ER) | payer OTHER ==
[~2017-07-21] VITALS: Ht 165.1 cm; Wt 78.5 kg
--- NOTE | 2017-07-21 22:11 | NUR ---
PT AMBULATORY TO ER BED 13. PT BIB SELF C/O +SI/-HI WITH PLAN TO "TAKE A BUNCH OF TYLENOL". HEARING VOICES. SUICIDE PRECAUTIONS IN PLACE. PT PLACED IN GOWN AND ON CRANBERRY FARM SUPERVISOR. VSS/RESP EVEN UNLABORED/NAD NOTED/SKIN WARM AND DRY/DENIES N-V-D/AOX4. AWAITING MD AU.
--- NOTE | 2017-07-21 22:40 | NUR ---
PT STATES TO MD CUEVAS THAT PATIENT WAS NEVER STATING SI OR HI AND STATES SHE WAS ONLY HERE FOR BRONCHITITS, MD CUEVAS STATES HE IS WILLING TO GIVE ANTIBIOTICS FOR HER BRONCHITIS BUT PT DECLINED, PT IS A/OX4 BREATHING EFFORTLESSLY ON ROOM AIR WALKING WITH A STEADY GAIT, PT STATES SHE WANTS TO LEAVE SINCE MD CUEVAS WAS ONLY WANTING TO GIVE ANTIBIOTICS, MD CUEVAS MADE AWARE AND STATES SHE IS GOOD TO GO, PT WALKED OUT OF THE ER WITH A STEADY GAIT PT DID NOT WANT TO WAIT FOR ACI OR PRESCRIPTION, MD CUEVAS MADE AWARE
[2017-07-21 22:45] VITALS: BP 156/81
== END 2017-07-21 22:46 | disposition home or self-care (01) ==
LOC: ER 21:54
DX: J40 Bronchitis, not specified as acute or chronic (principal); F32.9 Major depressive disorder, single episode, unspecified; I10 Essential (primary) hypertension; F20.9 Schizophrenia, unspecified; F31.9 Bipolar disorder, unspecified; Z60.2 Problems related to living alone; Z90.710 Acquired absence of both cervix and uterus
CPT/HCPCS: 99283; A4606; Z7610

== ENCOUNTER 2018-02-12 20:36 | Emergency (ER) | payer OTHER ==
[~2018-02-12] VITALS: Ht 165.1 cm; Wt 99.8 kg
--- NOTE | 2018-02-12 20:36 | NUR ---
BBSELF C/C HEARING VOICES TO OVERDOSE ON "BIG PILLS". +SI, -HI. PT IS HYPERTENSIVE AND TACHYCARDIC BUT OTHERWISE VSS NO ACUTE DISTRESS NOTED AT THIS TIME. PT IS ALERT AND ORIENTED X4 ABLE TO MAKE NEEDS KNOWN. WILL CONTINUE TO MONITOR FOR ANY CHANGES DURING THE SHIFT.
--- NOTE | 2018-02-12 20:37 | NUR ---
ER MD WADE AT BEDSIDE FOR EVAL
--- NOTE | 2018-02-12 21:44 | NUR ---
NO RESTRAINTS NEEDED. PATIENT IS COOPERATING AND ABLE TO FOLLOW COMMANDS
[2018-02-12 21:58] LABS: APPEARANCE,URINE SL CLOUDY (CLEAR); BILIRUBIN,URINE NEGATIVE (NEGATIVE); BLOOD, URINE 2+ Ery/uL (NEGATIVE); COLOR,URINE YELLOW (YELLOW); KETONES,URINE NEGATIVE (NEGATIVE); LEUKOCYTE ESTERASE ,URINE NEGATIVE (NEGATIVE); NITRITE, URINE NEGATIVE (NEGATIVE); PROTEIN,URINE TRACE mg/dl (NEGATIVE); UGLUCOSE NEGATIVE (NEGATIVE); UROBILINOGEN,URINE 0.2 EU/dL (0.2)
[2018-02-12 22:04] LABS: BACTERIA,URINE Few /HPF (None Seen); SQUAMOUS EPITHELIAL CELL,UR Few /HPF (None Seen)
[2018-02-12 22:25] LABS: CALCIUM, SERUM 8.9 mg/dL (8.5-10.1); CARBON DIOXIDE 27 mmol/L (21-32); CHLORIDE 100 mmol/L (98-107); CREATININE 0.7 mg/dL (0.6-1.3); GLUCOSE 117 mg/dL (74-106); POTASSIUM 3.4 mmol/L (3.5-5.1); SODIUM SERUM 136 mmol/L (136-145); UREA NITROGEN, BLOOD 14 mg/dL (7-18)
[2018-02-12 22:31] LABS: ALANINE AMINOTRANSFERASE 36 U/L (12-78); ALBUMIN 3.1 g/dL (3.4-5.0); ALKALINE PHOSPHATASE 111 U/L (46-116); ASPARTATE AMINOTRANSFERASE 22 U/L (15-37); BILIRUBIN,TOTAL 0.2 mg/dL (0.2-1.0); TOTAL PROTEIN, SERUM 7.2 g/dL (6.4-8.2)
[2018-02-12 22:32] LABS: ACETAMINOPHEN 0 ug/ml (10-30); ALCOHOL, BLOOD < 3 mg/dL (0-0); SALICYLATE 0.9 mg/dL (2.8-20.0)
[2018-02-12 22:58] LABS: BASOPHILS % (AUTO) 0.1 % (0.0-2.0); EOSINOPHILS % (AUTO) 1.1 % (0.0-6.0); HEMATOCRIT 32 % (33-45); HEMOGLOBIN 9.8 g/dL (11.5-14.8); LYMPHOCYTES # (AUTO) 2.2 /CMM (0.8-4.8); LYMPHOCYTES % (AUTO) 15.8 % (20.0-44.0); MEAN CORPUSCULAR HGB CONC 31 g/dl (31.0-36.0); MEAN CORPUSCULAR VOLUME 70 fL (82-100); MONOCYTES % (AUTO) 7.2 % (2.0-12.0); NEUTROPHILS # (AUTO) 10.5 /CMM (1.8-8.9); NEUTROPHILS % (AUTO) 75.8 % (43.0-81.0); PLATELET COUNT (AUTO) 354 /CMM (150-450); RDW COEFFICIENT OF VARIATION 19.4 (11.5-15.0); RED BLOOD CELL COUNT(AUTO) 4.61 MIL/uL (4.0-5.2); WHITE BLOOD COUNT (AUTO) 13.9 K/uL (4.3-11.0)
--- NOTE | 2018-02-13 00:09 | NUR ---
ART AT BEDSIDE FOR PSYCH EVAL
[2018-02-13 03:29] VITALS: BP 131/89
--- NOTE | 2018-02-13 03:29 | NUR ---
REPORT GIVEN TO EMS
--- NOTE | 2018-02-13 03:29 | NUR ---
REPORT GIVEN TO PRASAD
== END 2018-02-13 03:32 ==
LOC: ER 20:41
DX: R45.851 Suicidal ideations (principal); F31.9 Bipolar disorder, unspecified; F20.9 Schizophrenia, unspecified; I10 Essential (primary) hypertension; Z90.710 Acquired absence of both cervix and uterus; Z60.2 Problems related to living alone; Z59.0 Homelessness
CPT/HCPCS: 36415; 80048; 80076; 80305; 80329; 81001; 84703; 85025; 99285; A4606; G0480 ×2; Z7610; 81000-TC

== ENCOUNTER 2018-08-13 19:25 | Emergency (ER) | payer MEDICAID, OTHER ==
[~2018-08-13] VITALS: Ht 165.1 cm; Wt 99.8 kg
--- NOTE | 2018-08-13 20:55 | NUR ---
URINE SAMPLE COLLECTED AND SENT TO LAB
[2018-08-13 21:19] LABS: BASOPHILS % (AUTO) 0.3 % (0.0-2.0); EOSINOPHILS % (AUTO) 0.3 % (0.0-6.0); HEMATOCRIT 33 % (33-45); HEMOGLOBIN 9.8 g/dL (11.5-14.8); LYMPHOCYTES # (AUTO) 1.7 /CMM (0.8-4.8); MEAN CORPUSCULAR HGB CONC 30 g/dl (31.0-36.0); MEAN CORPUSCULAR VOLUME 70 fL (82-100); MONOCYTES # (AUTO) 0.9 /CMM (0.1-1.30); MONOCYTES % (AUTO) 5.9 % (2.0-12.0); NEUTROPHILS # (AUTO) 13.1 /CMM (1.8-8.9); NEUTROPHILS % (AUTO) 82.5 % (43.0-81.0); PLATELET COUNT (AUTO) 282 /CMM (150-450); RED BLOOD CELL COUNT(AUTO) 4.68 MIL/uL (4.0-5.2); WHITE BLOOD COUNT (AUTO) 15.8 K/uL (4.3-11.0)
[2018-08-13 21:26] LABS: CALCIUM, SERUM 8.2 mg/dL (8.5-10.1); CARBON DIOXIDE 27 mmol/L (21-32); CHLORIDE 104 mmol/L (98-107); GLUCOSE 134 mg/dL (74-106); POTASSIUM 3.4 mmol/L (3.5-5.1); SODIUM SERUM 140 mmol/L (136-145); UREA NITROGEN, BLOOD 13 mg/dL (7-18)
[2018-08-13 21:30] LABS: APPEARANCE,URINE Clear (CLEAR); BILIRUBIN,URINE Negative (NEGATIVE); BLOOD, URINE Small Ery/uL (NEGATIVE); COLOR,URINE Yellow (YELLOW); KETONES,URINE Trace (NEGATIVE); LEUKOCYTE ESTERASE ,URINE Negative (NEGATIVE); NITRITE, URINE Negative (NEGATIVE); PROTEIN,URINE 30 mg/dl (NEGATIVE); UGLUCOSE Negative (NEGATIVE); UROBILINOGEN,URINE 0.2 EU/dL (0.2)
[2018-08-13 21:39] LABS: ALANINE AMINOTRANSFERASE 33 U/L (12-78); ALBUMIN 3.2 g/dL (3.4-5.0); ALKALINE PHOSPHATASE 99 U/L (46-116); ASPARTATE AMINOTRANSFERASE 12 U/L (15-37); BILIRUBIN,TOTAL 0.1 mg/dL (0.2-1.0); TOTAL PROTEIN, SERUM 7.1 g/dL (6.4-8.2)
[2018-08-13 21:40] LABS: ACETAMINOPHEN < 2 ug/ml (10-30); ALCOHOL, BLOOD < 3 mg/dL (0-0); SALICYLATE < 2.8 mg/dL (2.8-20.0)
[2018-08-13 21:50] LABS: BACTERIA,URINE Few /HPF (None Seen); MUCUS,URINE Many /LPF (None Seen); SQUAMOUS EPITHELIAL CELL,UR Few /HPF (None Seen)
--- NOTE | 2018-08-13 22:00 | NUR ---
FOOD AND JUICE PROVIDED TO PT. PT RESTING IN BED WITH NO S/S OF ACUTE DISTRESS NOTED. WILL CONTINUE TO MONITOR PT.
--- NOTE | 2018-08-14 00:21 | NUR ---
CRISIS TEAM BEDSIDE FOR EVAL
--- NOTE | 2018-08-14 02:17 | NUR ---
PT [facility]ED TO [facility] RN TO RN REPORT: [phone] EXT [address] DREW.
--- NOTE | 2018-08-14 02:24 | NUR ---
[facility] TRANSPORT ETA 30MINS TRIP # [id number]
[2018-08-14 02:27] VITALS: BP 149/82
--- NOTE | 2018-08-14 02:32 | NUR ---
REPORT GIVEN TO FRANCES HERNANDEZ AT [facility] FOR [facility]
--- NOTE | 2018-08-14 02:58 | NUR ---
REPORT GIVEN TO EMS CREW FOR [facility]
--- NOTE | 2018-08-14 03:05 | NUR ---
Patient Tranfers to outside Facility Physician:VIKI Location:[facility]
== END 2018-08-14 03:08 ==
LOC: ER 19:26
DX: F31.9 Bipolar disorder, unspecified (principal); F20.9 Schizophrenia, unspecified; R45.851 Suicidal ideations; D72.829 Elevated white blood cell count, unspecified; D50.9 Iron deficiency anemia, unspecified; I10 Essential (primary) hypertension; Z90.710 Acquired absence of both cervix and uterus; Z60.2 Problems related to living alone
CPT/HCPCS: 36415; 80048; 80076; 80305; 80307; 80329; 81001; 84703; 85025; 99285; G0480; 81000-TC

== ENCOUNTER 2018-08-30 17:51 | Emergency (ER) | payer MEDICAID ==
[~2018-08-30] VITALS: Ht 165.1 cm; Wt 107.0 kg
--- NOTE | 2018-08-30 18:10 | NUR ---
PATIENT ARRIVED AT UNIT AMBULATORY. A&O X 3, NO ACUTE DISTRESS, DENIES ANY PAIN OR DISCOMFORT. REPORTS FEELING SUICIDAL. WITH PLAN OF GOING TO [facility] AND STEALING PILLS. DID NOT SPECIFY WHICH PILLS SHE PLANS TO TAKE. VERBALIZED, " WHATEVER, I NEED TO FIND OUT WHICH PILL IS BIG ENOUGH"
--- NOTE | 2018-08-30 18:15 | NUR ---
DR REDMAN AT BEDSIDE
--- NOTE | 2018-08-30 18:17 | NUR ---
URINE COLLECTED AND SENT TO LAB
[2018-08-30 18:25] LABS: BASOPHILS % (AUTO) 0.2 % (0.0-2.0); EOSINOPHILS % (AUTO) 0.6 % (0.0-6.0); HEMATOCRIT 33 % (33-45); LYMPHOCYTES % (AUTO) 13.1 % (20.0-44.0); MEAN CORPUSCULAR HGB CONC 30 g/dl (31.0-36.0); MEAN CORPUSCULAR VOLUME 69 fL (82-100); MONOCYTES # (AUTO) 0.9 /CMM (0.1-1.30); MONOCYTES % (AUTO) 6.1 % (2.0-12.0); NEUTROPHILS # (AUTO) 12.2 /CMM (1.8-8.9); PLATELET COUNT (AUTO) 335 /CMM (150-450); RED BLOOD CELL COUNT(AUTO) 4.81 MIL/uL (4.0-5.2); WHITE BLOOD COUNT (AUTO) 15.3 K/uL (4.3-11.0)
[2018-08-30 18:34] LABS: CALCIUM, SERUM 8.7 mg/dL (8.5-10.1); CARBON DIOXIDE 29 mmol/L (21-32); CHLORIDE 104 mmol/L (98-107); CREATININE 0.8 mg/dL (0.6-1.3); GLUCOSE 125 mg/dL (74-106); POTASSIUM 3.8 mmol/L (3.5-5.1); SODIUM SERUM 141 mmol/L (136-145); UREA NITROGEN, BLOOD 11 mg/dL (7-18)
[2018-08-30 18:40] LABS: ALANINE AMINOTRANSFERASE 29 U/L (12-78); ALBUMIN 3.1 g/dL (3.4-5.0); ALCOHOL, BLOOD < 3 mg/dL (0-0); ALKALINE PHOSPHATASE 100 U/L (46-116); ASPARTATE AMINOTRANSFERASE 13 U/L (15-37); BILIRUBIN,TOTAL 0.2 mg/dL (0.2-1.0); TOTAL PROTEIN, SERUM 7.8 g/dL (6.4-8.2)
[2018-08-30 18:43] LABS: ACETAMINOPHEN < 2 ug/ml (10-30); SALICYLATE 1.3 mg/dL (2.8-20.0)
[2018-08-30 18:44] LABS: APPEARANCE,URINE Clear (CLEAR); BILIRUBIN,URINE Negative (NEGATIVE); BLOOD, URINE Trace-lysed Ery/uL (NEGATIVE); COLOR,URINE Yellow (YELLOW); KETONES,URINE Negative (NEGATIVE); LEUKOCYTE ESTERASE ,URINE Negative (NEGATIVE); NITRITE, URINE Negative (NEGATIVE); PH,URINE 6.5 (5.0-8.0); PROTEIN,URINE Negative (NEGATIVE); UGLUCOSE Negative (NEGATIVE); UROBILINOGEN,URINE 0.2 EU/dL (0.2)
[2018-08-30 18:54] LABS: BACTERIA,URINE Rare /HPF (None Seen); SQUAMOUS EPITHELIAL CELL,UR Few /HPF (None Seen); WBC,URINE NONE SEEN /HPF (0-3)
--- NOTE | 2018-08-30 19:43 | NUR ---
DANTE RN AT BEDSIDE FOR PSYCH EVAL.
--- NOTE | 2018-08-30 20:23 | NUR ---
PT GOING TO [facility]. ACCEPTING MD DR LIVE NUMBER FOR REPORT [phone] EXT [phone]
--- NOTE | 2018-08-30 20:23 | NUR ---
CALLED [facility] FOR TRANSPORT ETA OF [id number] WAS GIVEN. TRIP#[id number]
--- NOTE | 2018-08-30 20:55 | NUR ---
REPORT GIVEN TO FRANCES YUN.
[2018-08-30 21:06] LABS: LYMPHOCYTES % (MANUAL) 8 % (16-48); MONOCYTES % (MANUAL) 7 % (0-11.0); NEUTROPHILS % (MANUAL) 85 (42-76)
[2018-08-30] MEDS ORDERED: hydrALAZINE HCL 10 MG TABLET PO ONE (23:00)
--- NOTE | 2018-08-30 23:03 | NUR ---
BP 171/93. DR NOTIFIED FOR BP MEDS.
[2018-08-30] MEDS ORDERED: hydrALAZINE HCL 10 MG TABLET ONE (23:07)
--- NOTE | 2018-08-30 23:40 | NUR ---
PT D/C STABLE BP 138/99MMHG. NO RESPIRATORY DISTRESS. TRANSPORT VIA [facility].
--- NOTE | 2018-08-30 23:41 | NUR ---
APRESOLINE, DOUBLE ORDER.
[2018-08-30 23:43] VITALS: BP 138/99
== END 2018-08-30 23:45 ==
LOC: ER 17:51
DX: R45.851 Suicidal ideations (principal); I10 Essential (primary) hypertension; F20.9 Schizophrenia, unspecified; F31.9 Bipolar disorder, unspecified; E66.9 Obesity, unspecified; F29 Unspecified psychosis not due to a substance or known physiological condition; Z90.710 Acquired absence of both cervix and uterus; Z60.2 Problems related to living alone
CPT/HCPCS: 36415; 80048; 80076; 80305; 80307; 80329; 81001; 84703; 85025; 99285; G0480; 81000-TC

== ENCOUNTER 2018-09-20 20:47 | Emergency (ER) | payer MEDICAID ==
[~2018-09-20] VITALS: Ht 165.1 cm; Wt 107.0 kg
--- NOTE | 2018-09-20 23:11 | NUR ---
PT GAVE A URINE SAMPLE. SAMPLE SENT TO THE LAB AND WAS CALLED RE: P/U.
--- NOTE | 2018-09-20 23:16 | NUR ---
PHLEBOTOMY BEDSIDE FOR BLOOD DRAW
[2018-09-20 23:22] LABS: BASOPHILS # (AUTO) 0.1 /CMM (0.0-0.2); BASOPHILS % (AUTO) 0.4 % (0.0-2.0); EOSINOPHILS % (AUTO) 0.8 % (0.0-6.0); HEMATOCRIT 35 % (33-45); HEMOGLOBIN 10.7 g/dL (11.5-14.8); LYMPHOCYTES # (AUTO) 2.4 /CMM (0.8-4.8); LYMPHOCYTES % (AUTO) 15.3 % (20.0-44.0); MEAN CORPUSCULAR HGB CONC 31 g/dl (31.0-36.0); MEAN CORPUSCULAR VOLUME 70 fL (82-100); MONOCYTES # (AUTO) 0.9 /CMM (0.1-1.30); MONOCYTES % (AUTO) 5.5 % (2.0-12.0); NEUTROPHILS # (AUTO) 12.1 /CMM (1.8-8.9); PLATELET COUNT (AUTO) 337 /CMM (150-450); WHITE BLOOD COUNT (AUTO) 15.6 K/uL (4.3-11.0)
[2018-09-20 23:23] VITALS: BP 138/97
--- NOTE | 2018-09-20 23:26 | NUR ---
BIBSELF C/O SI WITH PLAN TO OVERDOSE ON PILLS. -HI, +AUDITORY HALLUCINATION. PT IS AAOX4 W/ STEADY GAIT NOTED ON AMBULATION. NO S/S OF ACUTE DISTRESS NOTED. RR EVEN AND UNLABORED. PT RESTING ON CHAIR. WILL CONTINUE TO MONITOR PT FOR SAFETY AND COMFORT. SI PRECAUTIONS IN PLACE.
[2018-09-20 23:29] LABS: CALCIUM, SERUM 8.6 mg/dL (8.5-10.1); CARBON DIOXIDE 26 mmol/L (21-32); CHLORIDE 103 mmol/L (98-107); CREATININE 0.7 mg/dL (0.6-1.3); GLUCOSE 116 mg/dL (74-106); POTASSIUM 3.5 mmol/L (3.5-5.1); SODIUM SERUM 140 mmol/L (136-145); UREA NITROGEN, BLOOD 12 mg/dL (7-18)
--- NOTE | 2018-09-20 23:30 | NUR ---
PT REC'D JUICE, PUDDING, JELLO, APPLE SAUCE AND CRACKERS. PT ALSO REC'D A PITCHER OF ICE WATER.
[2018-09-20 23:35] LABS: ALANINE AMINOTRANSFERASE 27 U/L (12-78); ALCOHOL, BLOOD < 3 mg/dL (0-0); ALKALINE PHOSPHATASE 89 U/L (46-116); ASPARTATE AMINOTRANSFERASE 20 U/L (15-37); BILIRUBIN,TOTAL 0.2 mg/dL (0.2-1.0); TOTAL PROTEIN, SERUM 7.3 g/dL (6.4-8.2)
[2018-09-20 23:36] LABS: SALICYLATE 1.2 mg/dL (2.8-20.0)
[2018-09-20 23:46] LABS: ACETAMINOPHEN < 2 ug/ml (10-30)
[2018-09-20 23:50] LABS: APPEARANCE,URINE Clear (CLEAR); BILIRUBIN,URINE Negative (NEGATIVE); BLOOD, URINE Trace-intact Ery/uL (NEGATIVE); COLOR,URINE Yellow (YELLOW); KETONES,URINE Negative (NEGATIVE); LEUKOCYTE ESTERASE ,URINE Negative (NEGATIVE); NITRITE, URINE Negative (NEGATIVE); PH,URINE 5.5 (5.0-8.0); PROTEIN,URINE Negative (NEGATIVE); UGLUCOSE Negative (NEGATIVE); UROBILINOGEN,URINE 0.2 EU/dL (0.2)
[2018-09-20 23:58] LABS: WBC,URINE NONE SEEN /HPF (0-3)
[2018-09-20 23:59] LABS: BACTERIA,URINE Rare /HPF (None Seen); SQUAMOUS EPITHELIAL CELL,UR Few /HPF (None Seen)
[2018-09-21 00:21] LABS: EOSINOPHILS % (MANUAL) 2 % (0-4); LYMPHOCYTES % (MANUAL) 14 % (16-48); MONOCYTES % (MANUAL) 10 % (0-11.0); NEUTROPHILS % (MANUAL) 74 (42-76)
--- NOTE | 2018-09-21 02:00 | NUR ---
CRISIS WATER MAIN INSTALLER HELPER BEDSIDE WITH PT
--- NOTE | 2018-09-21 03:20 | NUR ---
pt accepted [facility] by Dr Field. # for report [phone]
--- NOTE | 2018-09-21 03:34 | NUR ---
REPORT GIVEN TO TRESTLE MECHANIC ENRICO FOR [facility].
--- NOTE | 2018-09-21 03:38 | NUR ---
[facility] ETA 0500 TRIP #[id number]
== END 2018-09-21 06:08 | disposition short-term general hospital (02) ==
LOC: ER 20:53
DX: R45.851 Suicidal ideations (principal); R44.0 Auditory hallucinations; I10 Essential (primary) hypertension; F31.9 Bipolar disorder, unspecified; Z90.710 Acquired absence of both cervix and uterus; Z60.2 Problems related to living alone
CPT/HCPCS: 36415; 80048; 80076; 80305; 80307; 80329; 81001; 84703; 85025; 99285; G0480; 81000-TC

== ENCOUNTER 2018-09-26 18:55 | Emergency (ER) ==
[~2018-09-26] VITALS: Ht 170.2 cm; Wt 105.7 kg
--- NOTE | 2018-09-26 19:31 | NUR ---
+SI, -HI, +PLAN, TOOK PILLS 2 HRS TOBACCO SCRAP SIFTER, +AUDITORY HALLUCINATIONS, DEPRESSED. ALSO C/O ABDOMINAL AND RIGHT FLANK PAIN. DENIES ANY OTHER COMPLAINTS AT THIS TIME. ASKING FOR FOOD. MADE COMFORTABLE AND READY FOR EVAL.
[2018-09-26 19:57] LABS: APPEARANCE,URINE Clear (CLEAR); BILIRUBIN,URINE Negative (NEGATIVE); BLOOD, URINE Moderate Ery/uL (NEGATIVE); COLOR,URINE Yellow (YELLOW); KETONES,URINE Negative (NEGATIVE); LEUKOCYTE ESTERASE ,URINE Negative (NEGATIVE); NITRITE, URINE Negative (NEGATIVE); PROTEIN,URINE Trace mg/dl (NEGATIVE); UGLUCOSE Negative (NEGATIVE); UROBILINOGEN,URINE 0.2 EU/dL (0.2)
[2018-09-26 20:03] LABS: RBC,URINE 21-50 /HPF (0-2)
[2018-09-26 20:04] LABS: BACTERIA,URINE Rare /HPF (None Seen); SQUAMOUS EPITHELIAL CELL,UR Few /HPF (None Seen); WBC,URINE NONE SEEN /HPF (0-3)
[2018-09-26 20:29] LABS: BASOPHILS # (AUTO) 0.1 /CMM (0.0-0.2); BASOPHILS % (AUTO) 0.7 % (0.0-2.0); HEMATOCRIT 37 % (33-45); HEMOGLOBIN 11.4 g/dL (11.5-14.8); LYMPHOCYTES # (AUTO) 1.8 /CMM (0.8-4.8); LYMPHOCYTES % (AUTO) 13.3 % (20.0-44.0); MEAN CORPUSCULAR HGB CONC 31 g/dl (31.0-36.0); MEAN CORPUSCULAR VOLUME 69 fL (82-100); MONOCYTES # (AUTO) 0.8 /CMM (0.1-1.30); MONOCYTES % (AUTO) 5.6 % (2.0-12.0); NEUTROPHILS # (AUTO) 10.7 /CMM (1.8-8.9); NEUTROPHILS % (AUTO) 79.4 % (43.0-81.0); PLATELET COUNT (AUTO) 312 /CMM (150-450); RED BLOOD CELL COUNT(AUTO) 5.36 MIL/uL (4.0-5.2); WHITE BLOOD COUNT (AUTO) 13.5 K/uL (4.3-11.0)
[2018-09-26 20:38] LABS: CALCIUM, SERUM 9.2 mg/dL (8.5-10.1); CARBON DIOXIDE 34 mmol/L (21-32); CHLORIDE 101 mmol/L (98-107); CREATININE 0.9 mg/dL (0.6-1.3); GLUCOSE 113 mg/dL (74-106); POTASSIUM 3.8 mmol/L (3.5-5.1); SODIUM SERUM 141 mmol/L (136-145); UREA NITROGEN, BLOOD 15 mg/dL (7-18)
[2018-09-26 20:40] LABS: NEUTROPHILS % (MANUAL) 81 (42-76)
[2018-09-26 20:41] LABS: LYMPHOCYTES % (MANUAL) 12 % (16-48); MONOCYTES % (MANUAL) 7 % (0-11.0)
[2018-09-26 20:59] LABS: ACETAMINOPHEN < 10 ug/ml (10-30); ALANINE AMINOTRANSFERASE 36 U/L (12-78); ALBUMIN 3.7 g/dL (3.4-5.0); ALCOHOL, BLOOD < 3 mg/dL (0-0); ALKALINE PHOSPHATASE 104 U/L (46-116); ASPARTATE AMINOTRANSFERASE 17 U/L (15-37); BILIRUBIN,TOTAL 0.2 mg/dL (0.2-1.0); SALICYLATE 2.2 mg/dL (2.8-20.0); TOTAL PROTEIN, SERUM 8.4 g/dL (6.4-8.2)
[2018-09-26] MEDS ORDERED: MORPHINE SULFATE INJ 2 MG/ML DISP.SYRIN IM ONE (21:30)
[2018-09-26] MEDS ORDERED: ONDANSETRON 4 MG TAB.RAPDIS SL ONE (21:30)
[2018-09-26] MEDS ORDERED: MORPHINE SULFATE INJ 4 MG/ML DISP.SYRIN ONE (21:33)
[2018-09-26] MEDS ORDERED: ONDANSETRON 4 MG TAB.RAPDIS ONE (21:33)
--- NOTE | 2018-09-26 21:35 | NUR ---
TOOL LIAISON AT BEDSIDE
--- NOTE | 2018-09-26 22:49 | NUR ---
CALLED DIRECTOR OF PHOTOGRAPHY ACTION INSTALLER MO FOR PSYCH EVAL, LEFT VOICEMAIL
[2018-09-26] MEDS ORDERED: oxyCODONE/APAP (5/325 MG) 1 UDTAB TABLET PO ONE (23:00)
[2018-09-26] MEDS ORDERED: IBUPROFEN 600 MG TABLET PO ONE ×2 (23:00→23:37)
[2018-09-26] MEDS ORDERED: oxyCODONE/APAP (5/325 MG) 1 UDTAB TABLET ONE (23:37)
--- NOTE | 2018-09-26 23:46 | NUR ---
PT RESTING COMFORTABLY IN BED. MEDS GIVEN AND WILL CONT TO MONITOR.
--- NOTE | 2018-09-27 01:00 | NUR ---
ART, CUSTOMER SERVICE COORDINATOR AT BEDSIDE FOR EVALUATION
--- NOTE | 2018-09-27 03:20 | NUR ---
CALLED [facility] FOR TRANSPORTATION. ETA 1 HR. TRIP [id number]
--- NOTE | 2018-09-27 03:20 | NUR ---
PT ACCEPTED [facility]. ACCEPTING PHYSICIAN: DR. DREW NUMBER FOR REPORT: [phone] EXT [phone]
--- NOTE | 2018-09-27 03:23 | NUR ---
GAVE REPORT TO BRITNEY DANIELS FOR [facility]
[2018-09-27 04:23] VITALS: BP 90/71
--- NOTE | 2018-09-27 04:23 | NUR ---
GAVE REPORT TO [facility] FOR TRANSPORTATION [facility]
== END 2018-09-27 04:25 ==
LOC: ER 19:00
DX: R45.851 Suicidal ideations (principal); R10.9 Unspecified abdominal pain; G89.29 Other chronic pain; N83.8 Other noninflammatory disorders of ovary, fallopian tube and broad ligament; I10 Essential (primary) hypertension; F31.9 Bipolar disorder, unspecified; F20.9 Schizophrenia, unspecified; E11.9 Type 2 diabetes mellitus without complications; R00.0 Tachycardia, unspecified; Z59.0 Homelessness; Z90.710 Acquired absence of both cervix and uterus; Z60.2 Problems related to living alone
CPT/HCPCS: 36415; 74176; 76856; 80048; 80076; 80305; 80307; 80329; 81001; 85025; 96372; 99285; G0480; J2270; Q0162; 81000-TC

== ENCOUNTER 2020-01-28 12:44 | Emergency (ER) | payer MEDICAID ==
[~2020-01-28] VITALS: Ht 165.1 cm; Wt 97.5 kg
--- NOTE | 2020-01-28 12:44 | NUR ---
BIBRA 878 C/O SI "I WANT TO KILL MY SELF BY CHOKING" PT IS AAOX3, NOT IN RESPIRATORY DISTRESS, V/S STABLE, KEPT RESTED AND COMFORTABLE. SITTER AT BEDSIDE.
--- NOTE | 2020-01-28 12:58 | NUR ---
CALLED SECURITY FOR WANDING.
--- NOTE | 2020-01-28 13:00 | NUR ---
URINE SPECIMEN COLLECTED AND SENT TO LAB.
--- NOTE | 2020-01-28 13:02 | NUR ---
SEEN AND EXAMINED BY .
[2020-01-28 13:16] LABS: APPEARANCE,URINE Clear (CLEAR); BILIRUBIN,URINE Negative (NEGATIVE); BLOOD, URINE Trace-intact Ery/uL (NEGATIVE); COLOR,URINE Yellow (YELLOW); KETONES,URINE Negative (NEGATIVE); LEUKOCYTE ESTERASE ,URINE Negative (NEGATIVE); NITRITE, URINE Negative (NEGATIVE); PROTEIN,URINE Negative (NEGATIVE); UGLUCOSE Negative (NEGATIVE)
[2020-01-28 13:25] LABS: BACTERIA,URINE Few /HPF (None Seen); SQUAMOUS EPITHELIAL CELL,UR Few /HPF (None Seen); WBC,URINE 0-2 /HPF (0-3)
[2020-01-28 14:00] LABS: HEMOGLOBIN 10.2 g/dL (11.5-14.8); LYMPHOCYTES # (AUTO) 1.6 /CMM (0.8-4.8); MONOCYTES # (AUTO) 0.9 /CMM (0.1-1.30)
[2020-01-28 14:03] LABS: BASOPHILS % (AUTO) 0.3 % (0.0-2.0); EOSINOPHILS % (AUTO) 1.2 % (0.0-6.0); HEMATOCRIT 34 % (33-45); LYMPHOCYTES % (AUTO) 11.7 % (20.0-44.0); MEAN CORPUSCULAR HGB CONC 30 g/dl (31.0-36.0); MEAN CORPUSCULAR VOLUME 72 fL (82-100); MONOCYTES % (AUTO) 6.8 % (2.0-12.0); NEUTROPHILS # (AUTO) 10.7 /CMM (1.8-8.9); PLATELET COUNT (AUTO) 319 /CMM (150-450); RED BLOOD CELL COUNT(AUTO) 4.66 MIL/uL (4.0-5.2); WHITE BLOOD COUNT (AUTO) 13.3 K/uL (4.3-11.0)
[2020-01-28 14:09] LABS: CALCIUM, SERUM 8.9 mg/dL (8.5-10.1); CARBON DIOXIDE 30 mmol/L (21-32); CHLORIDE 102 mmol/L (98-107); CREATININE 0.7 mg/dL (0.6-1.3); GLUCOSE 83 mg/dL (74-106); POTASSIUM 3.5 mmol/L (3.5-5.1); SODIUM SERUM 140 mmol/L (136-145); UREA NITROGEN, BLOOD 11 mg/dL (7-18)
[2020-01-28 14:24] LABS: ALANINE AMINOTRANSFERASE 34 U/L (12-78); ALBUMIN 3.4 g/dL (3.4-5.0); ALCOHOL, BLOOD < 3 mg/dL (0-0); ALKALINE PHOSPHATASE 108 U/L (46-116); ASPARTATE AMINOTRANSFERASE 14 U/L (15-37); BILIRUBIN,DIRECT 0.1 mg/dL (0.0-0.2); BILIRUBIN,TOTAL 0.3 mg/dL (0.2-1.0); TOTAL PROTEIN, SERUM 7.6 g/dL (6.4-8.2)
[2020-01-28 14:25] LABS: ACETAMINOPHEN 0 ug/ml (10-30); SALICYLATE 0.9 mg/dL (2.8-20.0)
--- NOTE | 2020-01-28 15:44 | NUR ---
CALLED CRISIS TEAM FOR EVAL, WAITING FOR CALL BACK FROM [place]
--- NOTE | 2020-01-28 17:34 | NUR ---
MIQUEL, CRISIS TEAM CALLED BACK, ETA 10MINS.
--- NOTE | 2020-01-28 18:06 | NUR ---
PAPIER MACHE' MOLDER MIQUEL AT BEDSIDE
--- NOTE | 2020-01-28 18:30 | NUR ---
FAXED CLINICALS TO [facility] [place] [phone]
[2020-01-28] MEDS ORDERED: OLANZAPINE 5 MG TABLET PO ONE (19:00)
[2020-01-28] MEDS ORDERED: OLANZAPINE 5 MG TABLET ONE (19:25)
--- NOTE | 2020-01-28 19:36 | NUR ---
ASSUMED CARE. PT AAOX4 NO ACUTE DISTRESS NOTED, RESP EVEN AND UNLABORED. PT DENIES PAIN OR DISCOMFORT AT THIS TIME. REASSESSED PT REGARDING SUICIDALITY PT STATES "I STILL FEEL THE SAME AND IT WON'T CHANGE THE WAY I FEEL". 1:1 SITTER AT BEDSIDE FOR PT SAFETY.
--- NOTE | 2020-01-28 22:46 | NUR ---
PT awake in bed, watching tv.
--- NOTE | 2020-01-28 22:51 | NUR ---
PER CJ (INTAKE) @ [facility] INTAKE NO BEDS AVAILABLE AT THIS TIME.
--- NOTE | 2020-01-28 23:37 | NUR ---
Pt stated she was hungry. Pt was provided with food and water.
--- NOTE | 2020-01-29 00:12 | NUR ---
pt ambulated to the restroom. vss.
--- NOTE | 2020-01-29 02:14 | NUR ---
pt provided with food and more blankets.
--- NOTE | 2020-01-29 03:15 | NUR ---
PT RESTING COMFORTABLY IN BED. CALL LIGHT WITHIN REACH.VSS. SITTER AT BEDSIDE FOR SAFETY
--- NOTE | 2020-01-29 04:11 | NUR ---
pt remains asleep, vss.
--- NOTE | 2020-01-29 06:43 | NUR ---
Patient is resting comfortably in bed with eyes closed. Easily aroused. VSS
--- NOTE | 2020-01-29 07:17 | NUR ---
called for food.
--- NOTE | 2020-01-29 08:02 | NUR ---
FOOD TRAY PROVIDED. TOLERATED PO WELL
--- NOTE | 2020-01-29 09:08 | NUR ---
Patient approved for presumptive Medical. This SW faxed clinicals to [facility] for voluntary psychiatric treatment . Per Yared holding a bed for the patient.
--- NOTE | 2020-01-29 10:02 | NUR ---
LINDA MCKOY PT IS ACCEPTED IN [facility] CALL [phone] AMIL[facility]
--- NOTE | 2020-01-29 10:05 | NUR ---
CALLED TRANSPORT [facility] ETA 30 MINS PER JOSE.
--- NOTE | 2020-01-29 10:35 | NUR ---
PATIENT PICKED U[ BY [facility] [address] IN STABLE CONDITION. PATIENT WILL BE BROUGHT TO [facility]. CLINICALS PROVIDED TO BE GIVEN TO THE FACILITY.
[2020-01-29 10:36] VITALS: BP 121/70
== END 2020-01-29 10:36 ==
LOC: ER 12:45
DX: F99 Mental disorder, not otherwise specified (principal); I10 Essential (primary) hypertension; F20.9 Schizophrenia, unspecified; F31.9 Bipolar disorder, unspecified; R45.1 Restlessness and agitation; Z90.710 Acquired absence of both cervix and uterus; Z79.899 Other long term (current) drug therapy
CPT/HCPCS: 36415; 80048; 80076; 80305; 80307; 80329; 81001; 84703; 85025; 99285; G0480; 81000-TC

== ENCOUNTER 2020-11-03 02:35 | Emergency (ER) | payer MEDICAID ==
[~2020-11-03] VITALS: Ht 165.1 cm; Wt 108.9 kg
--- NOTE | 2020-11-03 03:00 | NUR ---
PRESENTED TO THE ER FOR C.O SI PLANNING TO CHOCK HERSELF. PT AMBULATORY W/ STEADY GAITS. REQUETING MEDICAL CLEARANCE FOR VOLUNTARY ADMISSION TO [facility]. VSS. PT REMAINED ON CLOSE OBSERVATION. SI PRECAUTION IMPLEMENTED, WILL CONT TO MONITOR ,
[2020-11-03 03:25] LABS: BASOPHILS % (AUTO) 0.2 % (0.0-2.0); EOSINOPHILS % (AUTO) 1.7 % (0.0-6.0); HEMATOCRIT 32 % (33-45); HEMOGLOBIN 9.7 g/dL (11.5-14.8); LYMPHOCYTES # (AUTO) 2.2 K/uL (0.8-4.8); LYMPHOCYTES % (AUTO) 20.2 % (20.0-44.0); MEAN CORPUSCULAR HGB CONC 31 g/dl (31.0-36.0); MEAN CORPUSCULAR VOLUME 69 fL (82-100); MONOCYTES # (AUTO) 0.7 K/uL (0.1-1.30); MONOCYTES % (AUTO) 6.5 % (2.0-12.0); NEUTROPHILS # (AUTO) 7.9 K/uL (1.8-8.9); NEUTROPHILS % (AUTO) 71.4 % (43.0-81.0); PLATELET COUNT (AUTO) 277 K/uL (150-450); RED BLOOD CELL COUNT(AUTO) 4.58 MIL/uL (4.0-5.2); WHITE BLOOD COUNT (AUTO) 11.1 K/uL (4.3-11.0)
[2020-11-03 03:38] LABS: BILIRUBIN,URINE Negative (NEGATIVE); COLOR,URINE YELLOW (YELLOW); LEUKOCYTE ESTERASE ,URINE Negative (NEGATIVE); NITRITE, URINE Negative (NEGATIVE); PROTEIN,URINE Trace mg/dl (NEGATIVE); UGLUCOSE Negative (NEGATIVE); UROBILINOGEN,URINE 0.2 EU/dL (0.2)
[2020-11-03 03:43] LABS: CALCIUM, SERUM 8.8 mg/dL (8.5-10.1); CARBON DIOXIDE 30 mmol/L (21-32); CHLORIDE 103 mmol/L (98-107); CREATININE 0.7 mg/dL (0.6-1.3); GLUCOSE 109 mg/dL (74-106); POTASSIUM 3.1 mmol/L (3.5-5.1); SODIUM SERUM 140 mmol/L (136-145); UREA NITROGEN, BLOOD 14 mg/dL (7-18)
[2020-11-03 03:49] LABS: BACTERIA,URINE None seen /HPF (None Seen); SQUAMOUS EPITHELIAL CELL,UR Few /HPF (None Seen); WBC,URINE 0-2 /HPF (0-3)
[2020-11-03 03:49] LABS: ALANINE AMINOTRANSFERASE 29 U/L (12-78); ALBUMIN 3.2 g/dL (3.4-5.0); ALKALINE PHOSPHATASE 97 U/L (46-116); ASPARTATE AMINOTRANSFERASE 15 U/L (15-37); BILIRUBIN,DIRECT 0.1 mg/dL (0.0-0.2); BILIRUBIN,TOTAL 0.2 mg/dL (0.2-1.0); TOTAL PROTEIN, SERUM 7.4 g/dL (6.4-8.2)
[2020-11-03 03:50] LABS: ACETAMINOPHEN < 0 ug/ml (10-30); ALCOHOL, BLOOD < 0 mg/dL (0-0)
[2020-11-03] MEDS ORDERED: POTASSIUM CHLORIDE 20 MEQ TAB.PRT.SR PO ONE ×2 (05:00→05:01)
--- NOTE | 2020-11-03 05:26 | NUR ---
FACE SHEET AND CLINICALS WERE FAXED TO [facility]
--- NOTE | 2020-11-03 06:37 | NUR ---
PT REPORTED SHE'S NO LONGER SUICIDAL AND WILLING TO LEAVE THE [facility] . DENIED SI/HI. MADE AWARE,
[2020-11-03 06:38] VITALS: BP 133/84
== END 2020-11-03 06:38 | disposition home or self-care (01) ==
LOC: ER 02:40
DX: R45.851 Suicidal ideations (principal); I10 Essential (primary) hypertension; Z20.822 Contact with and (suspected) exposure to COVID-19; F20.9 Schizophrenia, unspecified; F31.9 Bipolar disorder, unspecified; Z79.899 Other long term (current) drug therapy; Z90.710 Acquired absence of both cervix and uterus
CPT/HCPCS: 36415; 80048; 80076; 80143; 80307; 80320; 81001; 84703; 85007; 85025; 87426; 99285; C9803; G0480

== ENCOUNTER 2020-11-26 17:28 | Emergency (ER) | payer MEDICAID, OTHER ==
[~2020-11-26] VITALS: Ht 165.1 cm; Wt 102.1 kg
--- NOTE | 2020-11-26 17:30 | NUR ---
called to triage,no answer
[2020-11-26 19:29] LABS: BASOPHILS # (AUTO) 0.1 K/uL (0.0-0.2); BASOPHILS % (AUTO) 0.4 % (0.0-2.0); EOSINOPHILS % (AUTO) 0.4 % (0.0-6.0); HEMATOCRIT 33 % (33-45); HEMOGLOBIN 9.8 g/dL (11.5-14.8); LYMPHOCYTES # (AUTO) 2.2 K/uL (0.8-4.8); LYMPHOCYTES % (AUTO) 14.8 % (20.0-44.0); MEAN CORPUSCULAR HGB CONC 30 g/dl (31.0-36.0); MEAN CORPUSCULAR VOLUME 70 fL (82-100); MONOCYTES # (AUTO) 0.8 K/uL (0.1-1.30); MONOCYTES % (AUTO) 5.3 % (2.0-12.0); NEUTROPHILS # (AUTO) 11.9 K/uL (1.8-8.9); NEUTROPHILS % (AUTO) 79.1 % (43.0-81.0); PLATELET COUNT (AUTO) 321 K/uL (150-450); RED BLOOD CELL COUNT(AUTO) 4.74 MIL/uL (4.0-5.2)
[2020-11-26 19:39] LABS: CALCIUM, SERUM 8.7 mg/dL (8.5-10.1); CARBON DIOXIDE 30 mmol/L (21-32); CHLORIDE 106 mmol/L (98-107); CREATININE 0.9 mg/dL (0.6-1.3); GLUCOSE 91 mg/dL (74-106); POTASSIUM 3.8 mmol/L (3.5-5.1); SODIUM SERUM 143 mmol/L (136-145); UREA NITROGEN, BLOOD 16 mg/dL (7-18)
[2020-11-26 19:45] LABS: ALANINE AMINOTRANSFERASE 28 U/L (12-78); ALBUMIN 3.1 g/dL (3.4-5.0); ALCOHOL, BLOOD < 3 mg/dL (0-0); ALKALINE PHOSPHATASE 88 U/L (46-116); ASPARTATE AMINOTRANSFERASE 12 U/L (15-37); BILIRUBIN,DIRECT 0.1 mg/dL (0.0-0.2); BILIRUBIN,TOTAL 0.2 mg/dL (0.2-1.0); TOTAL PROTEIN, SERUM 7.4 g/dL (6.4-8.2)
[2020-11-26 19:46] LABS: ACETAMINOPHEN < 2 ug/ml (10-30)
[2020-11-26 20:08] LABS: BAND % (MANUAL) 1 % (0.0-5.0); LYMPHOCYTES % (MANUAL) 18 % (16-48); MONOCYTES % (MANUAL) 6 % (0-11.0); NEUTROPHILS % (MANUAL) 75 (42-76)
--- NOTE | 2020-11-26 20:39 | NUR ---
URINE COLLECTED AND SENT TO LAB
[2020-11-26 21:49] LABS: BILIRUBIN,URINE Negative (NEGATIVE); COLOR,URINE YELLOW (YELLOW); LEUKOCYTE ESTERASE ,URINE Negative (NEGATIVE); NITRITE, URINE Negative (NEGATIVE); PH,URINE 6.5 (5.0-8.0); PROTEIN,URINE Negative (NEGATIVE); UGLUCOSE Negative (NEGATIVE); UROBILINOGEN,URINE 0.2 EU/dL (0.2)
[2020-11-26 21:50] LABS: BACTERIA,URINE Rare /HPF (None Seen); SQUAMOUS EPITHELIAL CELL,UR Few /HPF (None Seen); WBC,URINE NONE SEEN /HPF (0-3)
[2020-11-27] MEDS ORDERED: DULO20CA PO (01:00)
[2020-11-27] MEDS ORDERED: GABA600T12 PO (01:00)
[2020-11-27] MEDS ORDERED: PROP20TA7 PO (01:01)
--- NOTE | 2020-11-27 03:15 | NUR ---
PT ACCEPTED TO [facility] BY DR CHOU. # FOR REPORT [phone]
--- NOTE | 2020-11-27 03:35 | NUR ---
[facility] CALL THE CAR CALLED FOR TRANSPORT. TRIP#[id number]
--- NOTE | 2020-11-27 03:48 | NUR ---
[facility] ETA 0900
--- NOTE | 2020-11-27 04:08 | NUR ---
TELEPHONE CALL TO [facility] AT [phone], WAS ADVISED TO CALL FRONT OFFICE AT [phone], CALL WAS TRANSFERRED TO UNIT, REPORT GIVEN TO BRENDA DANIELS FOR [facility], AND ADVISED HER OF ETA.
--- NOTE | 2020-11-27 10:05 | NUR ---
THE PATIENT IS ALERT AND ORIENTED X4. DENIES PAIN. IN ROOM AIR AND DENIES SOB. RESPIRATION REGULAR AND UNLABORED. THE PATIENT STATED THAT SHE FEEL BETTER AND DOES NOT WANT TO GO TO [facility] OR ANY OTHER FACILITY. SHE REQUESTED TO GET DISCHARGED. DENIES SI/HI. THE PATIENT IS OFFERED RESOURCES BUT SHE REFUSED AND REFUSED TO SIGN DISCHARGE PAPERS DESPITE EXPLAINING RISKS AND BENEFITS.
--- NOTE | 2020-11-27 10:11 | NUR ---
Patient discharged in stable condition. Written and verbal after care instructions provided. Patient verbalizes understanding of instruction but refuses to sign discharge papers.
[2020-11-27 10:12] VITALS: BP 133/75
== END 2020-11-27 10:12 | disposition home or self-care (01) ==
LOC: ER 17:32
DX: R45.851 Suicidal ideations (principal); F20.0 Paranoid schizophrenia; I10 Essential (primary) hypertension; F31.9 Bipolar disorder, unspecified; Z90.710 Acquired absence of both cervix and uterus; Z79.899 Other long term (current) drug therapy; Z91.14 Patient's other noncompliance with medication regimen; R10.9 Unspecified abdominal pain; Z20.822 Contact with and (suspected) exposure to COVID-19
CPT/HCPCS: 36415; 76705; 80048; 80076; 80143; 80307; 80320; 81001; 83690; 84703; 85007; 85025; 87426; 99285; C9803; G0480

== ENCOUNTER 2020-12-04 21:49 | Emergency (ER) | payer OTHER ==
[~2020-12-04] VITALS: Ht 165.1 cm; Wt 90.7 kg
[~2020-12-04 21:49] MED LIST changes: +DULO20CA PO; +GABA600T12 PO; +PROP20TA7 PO
--- NOTE | 2020-12-04 21:55 | NUR ---
TO ER BED REQUESTING MEDICAL CLEARANCE FOR VOLUNTARY PSYCH ADMISSION. PT C/O SI WITH PLAN TO "CHOKE SELF". DENIES HI. PT AAOX4 NO ACUTE DISTRESS NOTED, RESP EVEN AND UNLABORED. PT CALM AND COOPERATIVE AT THIS TIME.
--- NOTE | 2020-12-04 21:58 | NUR ---
COVID SWAB COLLECTED AND SENT TO LAB.
--- NOTE | 2020-12-04 22:04 | NUR ---
BLOOD DRAWN BY [employer].
--- NOTE | 2020-12-04 22:15 | NUR ---
urine sent to lab
[2020-12-04 22:37] LABS: BILIRUBIN,URINE NEGATIVE (NEGATIVE); COLOR,URINE YELLOW (YELLOW); LEUKOCYTE ESTERASE ,URINE TRACE (NEGATIVE); NITRITE, URINE NEGATIVE (NEGATIVE); PROTEIN,URINE NEGATIVE (NEGATIVE); UGLUCOSE NEGATIVE (NEGATIVE); UROBILINOGEN,URINE 0.2 EU/dL (0.2)
[2020-12-04 22:50] LABS: ALANINE AMINOTRANSFERASE 34 U/L (12-78); ALBUMIN 3.2 g/dL (3.4-5.0); ALKALINE PHOSPHATASE 104 U/L (46-116); ASPARTATE AMINOTRANSFERASE 15 U/L (15-37); BASOPHILS # (AUTO) 0.1 K/uL (0.0-0.2); BASOPHILS % (AUTO) 0.4 % (0.0-2.0); BILIRUBIN,DIRECT 0.1 mg/dL (0.0-0.2); BILIRUBIN,TOTAL 0.2 mg/dL (0.2-1.0); CALCIUM, SERUM 8.3 mg/dL (8.5-10.1); CARBON DIOXIDE 30 mmol/L (21-32); CHLORIDE 104 mmol/L (98-107); CREATININE 0.9 mg/dL (0.6-1.3); EOSINOPHILS % (AUTO) 1.2 % (0.0-6.0); GLUCOSE 89 mg/dL (74-106); HEMATOCRIT 32 % (33-45); HEMOGLOBIN 9.7 g/dL (11.5-14.8); LYMPHOCYTES # (AUTO) 2.3 K/uL (0.8-4.8); LYMPHOCYTES % (AUTO) 17.2 % (20.0-44.0); MEAN CORPUSCULAR HGB CONC 30 g/dl (31.0-36.0); MEAN CORPUSCULAR VOLUME 69 fL (82-100); MONOCYTES # (AUTO) 0.8 K/uL (0.1-1.30); MONOCYTES % (AUTO) 5.8 % (2.0-12.0); NEUTROPHILS # (AUTO) 10.1 K/uL (1.8-8.9); NEUTROPHILS % (AUTO) 75.4 % (43.0-81.0); PLATELET COUNT (AUTO) 291 K/uL (150-450); POTASSIUM 3.6 mmol/L (3.5-5.1); RED BLOOD CELL COUNT(AUTO) 4.65 MIL/uL (4.0-5.2); SODIUM SERUM 140 mmol/L (136-145); TOTAL PROTEIN, SERUM 7.5 g/dL (6.4-8.2); UREA NITROGEN, BLOOD 14 mg/dL (7-18); WHITE BLOOD COUNT (AUTO) 13.5 K/uL (4.3-11.0)
[2020-12-04 22:55] LABS: BACTERIA,URINE Many /HPF (None Seen); RBC,URINE 0-2 /HPF (0-2); SQUAMOUS EPITHELIAL CELL,UR Moderate /HPF (None Seen)
[2020-12-04 22:56] LABS: MUCUS,URINE Moderate /LPF (None Seen)
[2020-12-04 23:03] LABS: ACETAMINOPHEN < 2 ug/ml (10-30); ALCOHOL, BLOOD < 3 mg/dL (0-0)
--- NOTE | 2020-12-05 | NUR ---
CLINICAL AND FACESHEET FAXED TO [facility] FOR VOLUNTARY PSYCH ADMISSION.
--- NOTE | 2020-12-05 03:48 | NUR ---
Patient is resting comfortably in bed with eyes closed. Easily aroused. VSS
--- NOTE | 2020-12-05 05:03 | NUR ---
PT LEFT ED. VSS. AMBULATED WITH STEADY GAIT.
--- NOTE | 2020-12-05 05:03 | NUR ---
PT DENIES SI AND HI. REQUESTED TO LEAVE ED. VSS. ER AWARE.
[2020-12-05 05:04] VITALS: BP 128/75
== END 2020-12-05 05:04 | disposition home or self-care (01) ==
LOC: ER 21:49
DX: R45.851 Suicidal ideations (principal); F31.9 Bipolar disorder, unspecified; F20.9 Schizophrenia, unspecified; Z79.899 Other long term (current) drug therapy; D72.829 Elevated white blood cell count, unspecified; Z20.822 Contact with and (suspected) exposure to COVID-19
CPT/HCPCS: 36415; 80048; 80076; 80143; 80307; 80320; 81001; 84703; 85025; 87086; 87426; 99285; C9803; G0480

== ENCOUNTER 2020-12-05 18:25 | Emergency (ER) | payer SELFPAY ==
[~2020-12-05] VITALS: Ht 165.1 cm; Wt 90.7 kg
--- NOTE | 2020-12-05 18:25 | NUR ---
PT BIB SELF C/O DEPRESSION, SUICIDAL IDEATION "I WANT TO CUT MY WRIST" PT IS AAOX4, NOT IN RESPIRATORY DISTRESS, V/S STABLE, KEPT RESTED AND COMFORTABLE. WILL CONTINUE TO MONITOR.
[2020-12-05 18:44] VITALS: BP 148/99
--- NOTE | 2020-12-05 18:48 | NUR ---
URINE SPECIMEN COLLECTED AND SENT TO LAB.
--- NOTE | 2020-12-05 19:16 | NUR ---
PER [facility] PT IS OKAY TO GO TO FACILITY BASED ON PREVIOUS CLINICAL DATA OBTAINED AT 2200 LAST NIGHT PENDING THE APPROVAL OF PT INSURANCE.
--- NOTE | 2020-12-05 20:30 | NUR ---
she stated that she is no longer suicidal and wishes to leave the emergency room.-HI. pt ambulatory w/ steady gaits left the ER and did not want to wait for the discharge papers.
--- NOTE | 2020-12-05 22:15 | NUR ---
PT DENIES SI AND HI. REQUESTED TO LEAVE ED. VSS. AMBULATED OUT. DID NOT WANT TO WAIT FOR DISCHARGE PAPERWORK
== END 2020-12-05 23:36 | disposition home or self-care (01) ==
LOC: ER 18:33
DX: R45.851 Suicidal ideations (principal); F20.9 Schizophrenia, unspecified; I10 Essential (primary) hypertension; F31.9 Bipolar disorder, unspecified; Z98.890 Other specified postprocedural states; Z59.0 Homelessness; Z60.2 Problems related to living alone; Z79.899 Other long term (current) drug therapy

== ENCOUNTER 2022-08-28 01:31 | Emergency (ER) | payer OTHER ==
[~2022-08-28] VITALS: Ht 165.1 cm; Wt 110.2 kg
--- NOTE | 2022-08-28 01:50 | NUR ---
BIBS FOR C/O SI, PLANNING TO CUT HER WRISST. REQUESTING VOLUNTARY PSYCH ADMISSION, PT AMBULATORY WITH STEADY GAIS TO THE BATHROOM. URINE SAMPLE OBTAINED. WAS PLACED IN BED 14 ER UNDER CLOSE SUPERVIDION AND SI PRECAUTION. BELONGINGS TAKEN AWAY. WILL CONT TO MONITOR,
[2022-08-28 03:15] LABS: BASOPHILS % (AUTO) 0.3 % (0.0-2.0); EOSINOPHILS % (AUTO) 2.6 % (0.0-6.0); HEMATOCRIT 32 % (33-45); HEMOGLOBIN 9.4 g/dL (11.5-14.8); LYMPHOCYTES % (AUTO) 14.7 % (20.0-44.0); MEAN CORPUSCULAR HGB CONC 30 g/dl (31.0-36.0); MEAN CORPUSCULAR VOLUME 72 fL (82-100); MONOCYTES # (AUTO) 0.8 K/uL (0.1-1.30); MONOCYTES % (AUTO) 5.7 % (2.0-12.0); NEUTROPHILS # (AUTO) 10.5 K/uL (1.8-8.9); NEUTROPHILS % (AUTO) 76.7 % (43.0-81.0); PLATELET COUNT (AUTO) 328 K/uL (150-450); RED BLOOD CELL COUNT(AUTO) 4.36 MIL/uL (4.0-5.2); WHITE BLOOD COUNT (AUTO) 13.7 K/uL (4.3-11.0)
[2022-08-28 03:33] LABS: BILIRUBIN,URINE NEGATIVE (NEGATIVE); COLOR,URINE YELLOW (YELLOW); LEUKOCYTE ESTERASE ,URINE NEGATIVE (NEGATIVE); NITRITE, URINE NEGATIVE (NEGATIVE); PH,URINE 6.5 (5.0-8.0); PROTEIN,URINE TRACE mg/dl (NEGATIVE); UGLUCOSE NEGATIVE (NEGATIVE); UROBILINOGEN,URINE 0.2 EU/dL (0.2)
[2022-08-28 03:35] LABS: BACTERIA,URINE None seen /HPF (None Seen); RBC,URINE 0-2 /HPF (0-2); SQUAMOUS EPITHELIAL CELL,UR Few /HPF (None Seen); WBC,URINE 0-2 /HPF (0-3)
[2022-08-28 03:42] LABS: CALCIUM, SERUM 8.7 mg/dL (8.5-10.1); CARBON DIOXIDE 30 mmol/L (21-32); CHLORIDE 104 mmol/L (98-107); CREATININE 0.7 mg/dL (0.6-1.3); GLUCOSE 97 mg/dL (74-106); POTASSIUM 3.3 mmol/L (3.5-5.1); SODIUM SERUM 140 mmol/L (136-145); UREA NITROGEN, BLOOD 9 mg/dL (7-18)
[2022-08-28 03:48] LABS: ALANINE AMINOTRANSFERASE 26 U/L (12-78); ALKALINE PHOSPHATASE 90 U/L (46-116); ASPARTATE AMINOTRANSFERASE 11 U/L (15-37); BILIRUBIN,DIRECT 0.1 mg/dL (0.0-0.2); BILIRUBIN,TOTAL 0.3 mg/dL (0.2-1.0)
[2022-08-28 03:52] LABS: ACETAMINOPHEN 0 ug/ml (10-30); ALCOHOL, BLOOD < 3 mg/dL (0-0)
--- NOTE | 2022-08-28 05:23 | NUR ---
CLINICALS FAXED TO [facility]
--- NOTE | 2022-08-28 07:30 | NUR ---
SENT PT CLINICALS AND [facility] CALL BACK FOR ADMISSION UPDATE
--- NOTE | 2022-08-28 07:45 | NUR ---
WAS NOTIFIED BY [facility] THAT [facility] IS CURRENTLY FULL BUT WILL BE RECIEVING DISCHARGES LATER TODAY
--- NOTE | 2022-08-28 08:35 | NUR ---
PT STATED THAT SHE IS NO LONGER SUICIDAL AND WOULD LIKE TO BE DISCHARGE. MD IS AWARE. PT GIVEN DISCHARGE INSTRUCTIUONS AND BUS PASS. PT LEFT FACILITY WALKING IN STABLE CONDITION.
[2022-08-28 08:36] VITALS: BP 152/94
== END 2022-08-28 08:37 | disposition home or self-care (01) ==
LOC: ER 01:33
DX: R45.851 Suicidal ideations (principal); I10 Essential (primary) hypertension; E11.9 Type 2 diabetes mellitus without complications; F20.9 Schizophrenia, unspecified; F31.9 Bipolar disorder, unspecified; Z20.822 Contact with and (suspected) exposure to COVID-19; Z90.710 Acquired absence of both cervix and uterus; Z59.00 Homelessness unspecified; Z79.899 Other long term (current) drug therapy
CPT/HCPCS: 99285; 85025; 80048; 80076; 84703; 81001; 36415; 84702; 87426; 80143; 80320; 80307; C9803; G0480